=== PATIENT | male | born 1960 | race African-American/Black ===

== ENCOUNTER 2018-01-13 12:23 | Observation (INO) | payer OTHER ==
--- NOTE | 2018-01-13 12:30 | PDOC ---
History of Present Illness - General Chief Complaint: Edema Stated Complaint: HYPERLIPIDEMIA Time Seen by Provider: 01/13/18 12:30 - History of Present Illness Initial Comments: 01/13/18 13:29 The patient is a 57 year old male with a history of HTN, HLD, Gout who presents for evaluation of lower extremity swelling. The patient reports a 2 week history of worsening lower extremity swelling with pain with ambulation prompting his presentation to the ED. He states that he has been unable to ambulate due to severe pain in his ankles and feet as well. He notes that with ambulation, he experiences worsening SOB on exertion. He otherwise denies fevers, chills, chest pain, nausea, vomiting, abdominal pain, or changes with urination or bowel movements. Past History - Past Medical History Allergies/Adverse Reactions: Allergies Allergy/AdvReac Type Severity Reaction Status Date / Time No Known Allergies Allergy Verified 01/13/18 12:42 Home Medications: Ambulatory Orders Oxycodone HCl mg PO Q4H PRN 01/13/18 COPD: No HTN: Yes Hypercholesterolemia: Yes Other medical history: 5 herniated discs - Suicide/Smoking/Psychosocial Hx Smoking History: Current every day smoker Number of Cigarettes Smoked Daily: 4 Information on smoking cessation initiated: No Review of Systems - Review of Systems Comments:: 01/13/18 13:32 Constitutional: No fevers, chills, fatigue, malaise HEENT: No Rhinorrhea, nasal congestion, visual changes Cardiovascular: No chest pain, syncope, palpitations, lightheadedness Respiratory: SOB. No Cough, Hemoptysis, Gastrointestinal: No Abdominal pain, Nausea, Vomiting, Constipation, Diarrhea, Melena Genitourinary: No Dysuria, Frequency, Urgency, Hesitancy, Hematuria, Flank pain Musculoskeletal: Lower extremity swelling. No Myalgia, arthralgia Skin: No rashes, itching, bruising, pallor Neurologic: No Headache, Dizziness, Numbness, Weakness, or Tingling Psychiatric: No Hallucinations. No SI or HI *Physical Exam - Vital Signs Last Vital Signs Temp Pulse Resp BP Pulse Ox 98.6 F 92 H 18 175/112 H 100 01/13/18 12:27 01/13/18 12:27 01/13/18 12:27 01/13/18 12:27 01/13/18 12:27 - Physical Exam Comments: 01/13/18 13:33 General Appearance: Nourished. No Apparent Distress HEENT: No Pharyngeal Erythema, Tonsillar Exudate, Tonsillar Erythema Neck: No Cervical Lymphadenopathy Respiratory/Chest: Lungs Clear, Normal Breath Sounds. No Crackles, Rales, Rhonchi, Wheezing Cardiovascular: Regular Rhythm, Regular Rate. No Murmur, Gallops, Rubs Gastrointestinal/Abdominal: Normal Bowel Sounds, Soft. No Guarding, Rebound, Tenderness Musculoskeletal: No CVA Tenderness Extremity: 2+ pitting edema in the lower extremities bilaterally. Tenderness to palpation along the ankles bilaterally. Normal Capillary Refill Integumentary: Normal Color, Dry, Warm Neurologic: Fully Oriented, Alert, Normal Mood/Affect, Normal Response, Heart Score/ECG Review #1 ECG reviewed & interpreted by me at: 13:36 General ECG Interpretation: Sinus Rhythm, Normal Rate, No acute ischemic changes 01/13/18 13:36 Right bundle branch block Left Anterior Fasicular Block HR 88 QTc 484 ED Treatment Course - LABORATORY CBC & Chemistry Diagram: 01/14/18 06:10 01/13/18 12:00 Medical Decision Making - Medical Decision Making 01/13/18 13:34 The patient is a 57 year old male with a history of HTN, HLD, Gout who presents for evaluation of lower extremity swelling. Differential includes but is not limited to: CHF, Gout, DVT, Infectious, Metabolic Derangement. Given the patient's history and physical exam, we will obtain a cbc, cmp, troponin, bnp, uric acid, ekg, chest plain film to evaluate further for possible etiologies. We will continue to monitor and reassess while here in the ED. 01/13/18 15:33 CBC, cmp, troponin, bnp are unremarkable. Uric acid is elevated. Chest plain film is unremarkable. Lower extremity US is unremarkable as read by our radiologist. We treated the patient with idocin and prednisone without improvement in the patient's symptoms. The patient has continued to be unable to ambulate due to pain. It is likely the patient's symptoms are due to a severe acute gout flare. We believe the patient requires observation admission. We discussed the case with the admitting team who accepted the patient for admission. *DC/Admit/Observation/Transfer Diagnosis at time of Disposition: Unable to walk Gout attack Qualifiers: Gout site: foot Gout etiology: unspecified cause Laterality: unspecified laterality Qualified Code(s): M10.9 - Gout, unspecified - Discharge Dispostion Condition at time of disposition: Stable Decision to Admit order: Yes - Referrals - Patient Instructions - Post Discharge Activity
--- NOTE | 2018-01-13 13:01 | PDOC ---
Attending Attestation - Resident Resident Name: Carter Barraganel - ED Attending Attestation I have performed the following: I have examined & evaluated the patient, The case was reviewed & discussed with the resident, I agree w/resident's findings & plan, Exceptions are as noted - HPI HPI: 01/13/18 13:32 Mr Maurice is a 57 yo M h/o HTN, HLD, Gout Pt presents to the ER with a complaint of lower extremity pain and swelling No fevers or chills No trauma Pt does note exertional dyspnea 01/13/18 13:33 - Physicial Exam PE: 01/13/18 13:34 Pt is awake and alert Answers questions appropriately RRR CTA b/o No abd tenderness Bilateral lower extremity edema - Medical Decision Making 01/13/18 13:34 EKG: SR rate of 88 bpm, Left axis deviation, RBBB, intervals abnormal - pr: 160mg, QRS: 118ms, QTc: 484ms 01/13/18 14:41 Laboratory Tests 01/13/18 01/13/18 12:00 12:00 WBC 7.0 Hgb 12.6 Hct 37.4 Plt Count 360 BUN 18 Creatinine 1.0 Uric Acid 7.8 H Creatine Kinase 227 Troponin I < 0.02 B-Natriuretic Peptide 209.4 H Duplex negative pt has severe pain Despite medications, pt is still unable to ambulate Will place on observation Clinical impression: gout flair, initial presentation Discharge Disposition - Diagnosis Unable to walk Gout attack Qualifiers: Gout site: foot Gout etiology: unspecified cause Laterality: unspecified laterality Qualified Code(s): M10.9 - Gout, unspecified - Discharge Dispostion Disposition: HOME Condition at time of disposition: Stable Decision to Admit order: Yes - Prescriptions - Referrals - Patient Instructions - Post Discharge Activity
[2018-01-13 14:00] LABS: BASO % 0.7 % (0-2.0); EOS % 1.1 % (0-4.5); HEMATOCRIT 37.4 % (35.4-49); HEMOGLOBIN 12.6 GM/dL (11.7-16.9); LYMPH % 25.7 % (8-40); MCH 31.7 pg (25.7-33.7); MCHC 33.7 g/dl (32.0-35.9); MEAN CELL VOLUME 93.8 fl (80-96); MONO % 7.4 % (3.8-10.2); NEUT % 65.1 % (42.8-82.8); PLATELET COUNT 360 K/MM3 (134-434); RBC 3.98 M/mm3 (4.00-5.60); RDW 13.3 % (11.9-15.9)
[2018-01-13 14:27] LABS: ALBUMIN 3.6 g/dl (3.4-5.0); ALK PHOS 100 U/L (45-117); ANION GAP 6 MMOL/L (8-16); BILIRUBIN,TOTAL 0.6 mg/dL (0.2-1); BLOOD UREA NITROGEN 18 mg/dL (7-18); CALCIUM 8.5 mg/dL (8.5-10.1); CHLORIDE 105 mmol/L (98-107); CO2 27 mmol/L (21-32); GLUCOSE,RANDOM 89 mg/dL (74-106); N-TERMINAL BNP 209.4 pg/ml (5-125); POTASSIUM 5.3 mmol/L (3.5-5.1); SGOT/AST 35 U/L (15-37); SGPT/ALT 23 U/L (13-61); SODIUM 137 mmol/L (136-145); TOT PROT 7.7 g/dl (6.4-8.2); URIC ACID 7.8 mg/dL (2.6-7.2)
[2018-01-13] MEDS ORDERED: INDOMETHACIN 50 MG CAPSULE PO ONE (14:42)
[2018-01-13] MEDS ORDERED: predniSONE 20 MG TABLET (UD) PO ONE (14:44)
[2018-01-13] MEDS ORDERED: predniSONE 20 MG TABLET (UD) ONE (14:55)
[2018-01-13] MEDS ORDERED: LABETALOL HCL 5 MG/1 ML (100MG/20 ML VIAL) IVPUSH ONE (16:19)
--- NOTE | 2018-01-13 18:25 | HP ---
CHIEF COMPLAINT: PCP: HISTORY OF PRESENT ILLNESS: ER course was notable for: (1) (2) (3) Recent Travel: PAST MEDICAL HISTORY: PAST SURGICAL HISTORY: Social History: Smoking: Alcohol: Drugs: Family History: Allergies No Known Allergies Allergy (Verified 01/13/18 12:42) HOME MEDICATIONS: Home Medications Medication Instructions Recorded Oxycodone HCl mg PO Q4H PRN 01/13/18 REVIEW OF SYSTEMS CONSTITUTIONAL: Absent: fever, chills, diaphoresis, generalized weakness, malaise, loss of appetite, weight change HEENT: Absent: rhinorrhea, nasal congestion, throat pain, throat swelling, difficulty swallowing, mouth swelling, ear pain, eye pain, visual changes CARDIOVASCULAR: Absent: chest pain, syncope, palpitations, irregular heart rate, lightheadedness , peripheral edema RESPIRATORY: Absent: cough, shortness of breath, dyspnea with exertion, orthopnea, wheezing, stridor, hemoptysis GASTROINTESTINAL: Absent: abdominal pain, abdominal distension, nausea, vomiting, diarrhea, constipation, melena, hematochezia GENITOURINARY: Absent: dysuria, frequency, urgency, hesitancy, hematuria, flank pain, genital pain MUSCULOSKELETAL: Absent: myalgia, arthralgia, joint swelling, back pain, neck pain SKIN: Absent: rash, itching, pallor HEMATOLOGIC/IMMUNOLOGIC: Absent: easy bleeding, easy bruising, lymphadenopathy, frequent infections ENDOCRINE: Absent: unexplained weight gain, unexplained weight loss, heat intolerance, cold intolerance NEUROLOGIC: Absent: headache, focal weakness or paresthesias, dizziness, unsteady gait, seizure, mental status changes, bladder or bowel incontinence PSYCHIATRIC: Absent: anxiety, depression, suicidal or homicidal ideation, hallucinations. PHYSICAL EXAMINATION Vital Signs - 24 hr 01/13/18 01/13/18 01/13/18 12:27 16:16 16:17 Temperature 98.6 F Pulse Rate 92 H 79 Pulse Rate [ 79 Right] Respiratory 18 18 Rate Blood Pressure 175/112 H Blood Pressure 171/112 H [Left Arm] O2 Sat by Pulse 100 96 96 Oximetry (%) 01/13/18 01/13/18 18:23 18:24 Temperature 98.7 F Pulse Rate Pulse Rate [ 73 Right] Respiratory 18 Rate Blood Pressure Blood Pressure 181/94 H [Left Arm] O2 Sat by Pulse 96 96 Oximetry (%) GENERAL: Awake, alert, and fully oriented, in no acute distress. HEAD: Normal with no signs of trauma. EYES: Pupils equal, round and reactive to light, extraocular movements intact, sclera anicteric, conjunctiva clear. No lid lag. EARS, NOSE, THROAT: Ears normal, nares patent, oropharynx clear without exudates. Moist mucous membranes. NECK: Normal range of motion, supple without lymphadenopathy, JVD, or masses. LUNGS: Breath sounds equal, clear to auscultation bilaterally. No wheezes, and no crackles. No accessory muscle use. HEART: Regular rate and rhythm, normal S1 and S2 without murmur, rub or gallop. ABDOMEN: Soft, nontender, not distended, normoactive bowel sounds, no guarding, no rebound, no masses. No hepatomegaly or splenomegaly. MUSCULOSKELETAL: Normal range of motion at all joints. No bony deformities or tenderness. No CVA tenderness. UPPER EXTREMITIES: 2+ pulses, warm, well-perfused. No cyanosis. No clubbing. No peripheral edema. LOWER EXTREMITIES: 2+ pulses, warm, well-perfused. No calf tenderness. No peripheral edema. NEUROLOGICAL: Cranial nerves II-XII intact. Normal speech. Normal gait. PSYCHIATRIC: Cooperative. Good eye contact. Appropriate mood and affect. SKIN: Warm, dry, normal turgor, no rashes or lesions noted, normal capillary refill. Laboratory Results - last 24 hr 01/13/18 01/13/18 12:00 12:00 WBC 7.0 RBC 3.98 L Hgb 12.6 Hct 37.4 MCV 93.8 MCH 31.7 MCHC 33.7 RDW 13.3 Plt Count 360 MPV 8.0 Absolute Neuts (auto) 4.6 Neutrophils % 65.1 Lymphocytes % 25.7 Monocytes % 7.4 Eosinophils % 1.1 Basophils % 0.7 Nucleated RBC % 0 Sodium 137 Potassium 5.3 H Chloride 105 Carbon Dioxide 27 Anion Gap 6 L BUN 18 Creatinine 1.0 Creat Clearance w eGFR > 60 Random Glucose 89 Uric Acid 7.8 H Calcium 8.5 Total Bilirubin 0.6 AST 35 ALT 23 Alkaline Phosphatase 100 Creatine Kinase 227 Creatine Kinase Index 0.9 CK-MB (CK-2) 2.2 Troponin I < 0.02 B-Natriuretic Peptide 209.4 H Total Protein 7.7 Albumin 3.6 ASSESSMENT/PLAN: Right ankle pain likely secondary to Gout flare --colchine acute dosing --Lyme Hypertension -start labetolol 100mg BID, titrate as needed --target SBP >160
[2018-01-13] MEDS ORDERED: COLCHICINE 0.6 MG TABLET (FP) PO STA (19:10)
[2018-01-13] MEDS ORDERED: COLCHICINE 0.6 MG TABLET (FP) PO ONE (22:00)
[2018-01-13] MEDS: LABETALOL HCL 100 MG TABLET (FP) PO SCH (22:23)
[2018-01-13 23:45] VITALS: BMI 41.1
[2018-01-14] MEDS: HEPARIN NA (PORCINE) 5,000 UNITS/ML 1ML VIAL SQ SCH ×3 (06:05→21:48)
[2018-01-14 07:20] LABS: BASO % 0.3 % (0-2.0); HEMATOCRIT 36.3 % (35.4-49); HEMOGLOBIN 12.1 GM/dL (11.7-16.9); LYMPH % 12.9 % (8-40); MCH 31.2 pg (25.7-33.7); MCHC 33.4 g/dl (32.0-35.9); MEAN CELL VOLUME 93.5 fl (80-96); MEAN PLT VOLUME 7.7 fl (7.5-11.1); MONO % 5.7 % (3.8-10.2); NEUT % 81.1 % (42.8-82.8); PLATELET COUNT 325 K/MM3 (134-434); RBC 3.89 M/mm3 (4.00-5.60); RDW 12.7 % (11.9-15.9); WHITE BLOOD COUNT 9.2 K/mm3 (4.0-10.0)
[2018-01-14 08:33] LABS: ALBUMIN 3.4 g/dl (3.4-5.0); ALK PHOS 93 U/L (45-117); ANION GAP 7 MMOL/L (8-16); BILIRUBIN,TOTAL 0.4 mg/dL (0.2-1); BLOOD UREA NITROGEN 16 mg/dL (7-18); CALCIUM 8.7 mg/dL (8.5-10.1); CHLORIDE 102 mmol/L (98-107); CO2 29 mmol/L (21-32); CREATININE 0.9 mg/dL (0.55-1.3); GLUCOSE,RANDOM 135 mg/dL (74-106); MAGNESIUM 2.4 mg/dL (1.8-2.4); POTASSIUM 4.9 mmol/L (3.5-5.1); SGOT/AST 15 U/L (15-37); SGPT/ALT 21 U/L (13-61); SODIUM 138 mmol/L (136-145); TOT PROT 7.3 g/dl (6.4-8.2)
[2018-01-14] MEDS: LABETALOL HCL 100 MG TABLET (FP) PO SCH ×4 (10:45→21:48)
--- NOTE | 2018-01-14 10:52 | EKG ---
Test Reason : Blood Pressure : / mmHG Vent. Rate : 088 BPM Atrial Rate : 088 BPM P-R Int : 160 ms QRS Dur : 118 ms QT Int : 400 ms P-R-T Axes : 043 -58 035 degrees QTc Int : 484 ms SINUS RHYTHM WITH PREMATURE SUPRAVENTRICULAR COMPLEXES RIGHT BUNDLE BRANCH BLOCK LEFT ANTERIOR FASCICULAR BLOCK BIFASCICULAR BLOCK ABNORMAL ECG WHEN COMPARED WITH ECG OF 25-OCT-2009 22:44, PREMATURE SUPRAVENTRICULAR COMPLEXES ARE NOW PRESENT (RBBB AND LEFT ANTERIOR FASCICULAR BLOCK) IS NOW PRESENT Confirmed by HUGH ROSARIO MD ([id number]) on 01/14/2018 10:52:14 AM Referred By: Confirmed By:HUGH ROSARIO MD
[2018-01-14] MEDS: LISINOPRIL 5 MG TABLET (FP) PO SCH (14:45)
--- NOTE | 2018-01-14 21:13 | PN ---
Physical Exam: SUBJECTIVE: Patient seen and examined OBJECTIVE: Vital Signs Period Temp Pulse Resp BP Sys/Chavez Pulse Ox Last 24 Hr 97.9 F-98.4 F 71-91 18-20 114-161/63-100 96-97 GENERAL: The patient is awake, alert, and fully oriented, in no acute distress. HEAD: Normal with no signs of trauma. EYES: PERRL, extraocular movements intact, sclera anicteric, conjunctiva clear. No ptosis. ENT: Ears normal, nares patent, oropharynx clear without exudates, moist mucous membranes. NECK: Trachea midline, full range of motion, supple. LUNGS: Breath sounds equal, clear to auscultation bilaterally, no wheezes, no crackles, no accessory muscle use. HEART: Regular rate and rhythm, S1, S2 without murmur, rub or gallop. ABDOMEN: Soft, nontender, nondistended, normoactive bowel sounds, no guarding, no rebound, no hepatosplenomegaly, no masses. EXTREMITIES: 2+ pulses, warm, well-perfused, no edema. NEUROLOGICAL: Cranial nerves II through XII grossly intact. Normal speech, gait not observed. PSYCH: Normal mood, normal affect. SKIN: Warm, dry, normal turgor, no rashes or lesions noted Laboratory Results - last 24 hr 01/14/18 01/14/18 01/14/18 06:10 06:10 06:10 WBC 9.2 RBC 3.89 L Hgb 12.1 Hct 36.3 MCV 93.5 MCH 31.2 MCHC 33.4 RDW 12.7 Plt Count 325 MPV 7.7 Absolute Neuts (auto) 7.5 Neutrophils % 81.1 D Lymphocytes % 12.9 D Monocytes % 5.7 Eosinophils % 0.0 D Basophils % 0.3 Nucleated RBC % 0 Sodium 138 Potassium 4.9 Chloride 102 Carbon Dioxide 29 Anion Gap 7 L BUN 16 Creatinine 0.9 Creat Clearance w eGFR > 60 Random Glucose 135 H Hemoglobin A1c % 5.5 Calcium 8.7 Magnesium 2.4 Total Bilirubin 0.4 AST 15 ALT 21 Alkaline Phosphatase 93 Total Protein 7.3 Albumin 3.4 TSH 0.27 L Active Medications Generic Name Dose Route Start Last Admin Trade Name Freq PRN Reason Stop Dose Admin Heparin Sodium (Porcine) 5,000 unit 01/14/18 06:00 01/14/18 14:46 Heparin - SQ 5,000 unit TID GLORIA Administration Labetalol HCl 100 mg 01/14/18 10:45 01/14/18 14:46 Normodyne - PO 100 mg TID GLORIA Administration Lisinopril 5 mg 01/14/18 10:45 01/14/18 14:45 Prinivil PO 5 mg DAILY GLORIA Administration ASSESSMENT/PLAN:
[2018-01-15] MEDS: HEPARIN NA (PORCINE) 5,000 UNITS/ML 1ML VIAL SQ SCH ×2 (05:54→14:46)
[2018-01-15] MEDS: LABETALOL HCL 100 MG TABLET (FP) PO SCH (05:54)
[2018-01-15] MEDS: LISINOPRIL 5 MG TABLET (FP) PO SCH (09:33)
[2018-01-15] MEDS ORDERED: LABETALOL HCL 100 MG TABLET (FP) PO SCH (10:00)
--- NOTE | 2018-01-15 10:30 | EKG ---
Test Reason : Blood Pressure : / mmHG Vent. Rate : 075 BPM Atrial Rate : 075 BPM P-R Int : 162 ms QRS Dur : 122 ms QT Int : 396 ms P-R-T Axes : 067 -40 069 degrees QTc Int : 442 ms SINUS RHYTHM WITH PREMATURE ATRIAL COMPLEXES LEFT AXIS DEVIATION RIGHT BUNDLE BRANCH BLOCK ABNORMAL ECG WHEN COMPARED WITH ECG OF 13-JAN-2018 13:09, T WAVE INVERSION NOW EVIDENT IN LATERAL LEADS Confirmed by SHREYAS CAMPO, ASIA ([id number]) on 01/15/2018 10:30:09 AM Referred By: Theresa DANIEL Confirmed By:ASIA PRITCHETT MD
--- NOTE | 2018-01-15 12:24 | ECHO ---
Name: MERT ROBISON Exam:Adult Echocardiogram Study Date: 01/15/2018 10:58 AM Age: 57 yrs Reason For Study: HYPERTENSIVE Height: 71 in Weight: 275 lb BSA: 2.4 m2 MMode/2D Measurements & Calculations IVSd: 1.3 cm Ao root diam: 2.9 cm LVIDd: 6.0 cm LA dimension: 3.0 cm LVIDs: 4.5 cm LVPWd: 1.3 cm EDV(Teich): 178.4 ml LVOT diam: 2.1 cm ESV(Teich): 92.0 ml TAPSE: 3.2 cm RV S Yousif: 18.1 cm/sec Doppler Measurements & Calculations MV E max yousif: 66.5 cm/sec Med Peak E' Yousif: 7.9 cm/sec MV A max yousif: 56.8 cm/sec Med E/e': 8.4 MV E/A: 1.2 Lat Peak E' Yousif: 8.1 cm/sec MV dec time: 0.19 sec Lat E/e': 8.3 Procedure A complete two-dimensional transthoracic echocardiogram was performed (2D, M-mode, Doppler and color flow Doppler). Left Ventricle The left ventricle is mildly dilated. Left ventricular systolic function is mildly reduced. Ejection Fraction = 45-50%. There is mild global hypokinesis of the left ventricle. Right Ventricle The right ventricle is normal size. The right ventricular systolic function is normal. RV systolic TD I is 18 cm/s. Atria The left atrial size is normal. Right atrial size is normal. Mitral Valve The mitral valve is normal in structure and function. There is mild mitral regurgitation. Tricuspid Valve The tricuspid valve is normal in structure and function. There is mild tricuspid regurgitation. Aortic Valve The aortic valve is normal in structure and function. Mild aortic regurgitation. Pulmonic Valve The pulmonic valve is not well visualized. Trace to mild pulmonic valvular regurgitation. Great Vessels The aortic root is normal size. Pericardium/Pleura There is no pericardial effusion. Interpretation Summary The left ventricle is mildly dilated. Left ventricular systolic function is mildly reduced. There is mild global hypokinesis of the left ventricle. Ejection Fraction = 45-50%. The right ventricular systolic function is normal. The left atrial size is normal. Right atrial size is normal. There is mild mitral regurgitation. There is mild tricuspid regurgitation. Mild aortic regurgitation. Trace to mild pulmonic valvular regurgitation. There is no pericardial effusion. Previous study is not available for comparison Deshawn Richardson MD 01/15/2018 12:23 PM
[2018-01-15 15:25] VITALS: BP 113/72; PULSE 92; TEMP 98.5
--- NOTE | 2018-01-15 15:57 | CON.CARD ---
Consult Consult Specialty:: Cardiology Referred by:: Ms. Ford NP Reason for Consultation:: Systolic CHF with mild LV systolic dysfunction. - History of Present Illness Chief Complaint: Leg swelling and COBOS. History of Present Illness: 57 year old obese man with a PMHx of HTN, HLD, gout admitted 01/13/2018 with lower extremity swelling and pain. The patient reports a 2 week history of worsening lower extremity swelling with pain. His exercise tolerance is severely limited due to right ankle pain and COBOS. He denies chest pain, SOB at rest, palpitation, dizziness, syncope or near syncope. GA ruled out. BNP is borderline. Echocardiogram 01/15/2018 showed mild LV dilatation with mild global hypokinesis. LVEF = 45-50%. Normal RV. Normal LA and RA in size. Mild AI/MR/TR. ECG revealed sinus rhythm with LAD, RBBB and lateral T inversion. - Alcohol/Substance Use Hx Alcohol Use: No - Smoking History Smoking history: Current every day smoker Aproximately how many cigarettes per day: 4 Home Medications - Allergies Allergies/Adverse Reactions: Allergies Allergy/AdvReac Type Severity Reaction Status Date / Time No Known Allergies Allergy Verified 01/13/18 12:42 - Home Medications Home Medications: Ambulatory Orders Oxycodone HCl mg PO Q4H PRN 01/13/18 Review of Systems - Review of Systems Cardiovascular: reports: Shortness of Breath Respiratory: reports: Snoring, SOB, SOB on Exertion Genitourinary: reports: No Symptoms Breasts: reports: No Symptoms Reported Musculoskeletal: reports: Joint Pain, Joint Swelling Integumentary: reports: No Symptoms Neurological: reports: No Symptoms Endocrine: reports: No Symptoms Hematology/Lymphatic: reports: No Symptoms Vital Signs: Vital Signs Temperature 98.5 F 01/15/18 15:23 Pulse Rate 92 H 01/15/18 15:23 Respiratory Rate 20 01/15/18 15:23 Blood Pressure 113/72 01/15/18 15:23 O2 Sat by Pulse Oximetry (%) 96 01/15/18 03:00 General: Well developed. Obese. No acute distress. Head: Normocephalic. Atraumatic, Eyes: PERRLA, EOMI. Sclerae anicteric. Conjunctivae clear. Neck: Supple. No JVD. No bruits. Heart: Normal S1, S2: Regular rhythm and rate. No murmur. No gallop or rub. Lungs: Symmetrical air entry. Clear to auscultation. No crackles. No wheezing or rhonchi. Abdomen: Soft. Bowel sound positive. Non tender. No masses. Extremities: Trace edema. No clubbing or cyanosis. PD 2+, equal bilaterally. - Other Data Labs, Other Data: CBC, BMP 01/14/18 06:10 01/14/18 06:10 Assessment/Plan 57 year old obese man with a PMHx of HTN, HLD, gout admitted 01/13/2018 with lower extremity swelling, pain and COBOS. GA ruled out. BNP is borderline. Echocardiogram 01/15/2018 showed mild LV dilatation with mild global hypokinesis. LVEF = 45-50%. Normal RV. Normal LA and RA in size. Mild AI/MR/TR. ECG revealed sinus rhythm with LAD, RBBB and lateral T inversion. Mild LV systolic dysfunction: unclear etiology. 1) Myocardial ischemia should be ruled out. 2) Obstructive sleep apnea should be ruled out. 3) Agree with Lisinopril 4) May change Labetalol to Metoprolol succinate 50 mg daily. 5) May use Lasix as needed. 6) The above recommendations can be done as out-pt. 7) Out-pt cardiac follow up with Dr. Rea. Please call us for reconsult as needed.
[2018-01-15] MEDS ORDERED: ACETAMINOPHEN 325 MG TABLET (FP) PO PRN (17:40)
[2018-01-15] MEDS ORDERED: ACETAMINOPHEN 325 MG TABLET (FP) ONE (17:49)
== END 2018-01-15 18:00 | disposition home or self-care (01) ==
LOC: JER 12:23 → JERBED 16:47 → J7W 19:53
PROVIDERS: ADMIT Hospitalist; ATTEND Nurse Practitioner Acute Care
PROC: 3E033GC Introduction of Other Therapeutic Substance into Peripheral Vein, Percutaneous Approach (ICD-10-PCS; principal; 2018-01-13)
DX: M10.9 Gout, unspecified (principal); R26.2 Difficulty in walking, not elsewhere classified; I10 Essential (primary) hypertension; E78.5 Hyperlipidemia, unspecified; F17.210 Nicotine dependence, cigarettes, uncomplicated; I45.2 Bifascicular block; E66.9 Obesity, unspecified; Z68.41 Body mass index [BMI] 40.0-44.9, adult
CPT/HCPCS: 36415; 71045-TC-FY; 80053; 82550; 82553; 83036; 83735; 83880; 84443; 84484; 84550; 85025; 86618; 93005; 93010; 93306-TC; 93970-TC; 96374; 99284-25; G0378; J1644

== ENCOUNTER 2018-06-25 20:08 | Emergency (ER) | payer OTHER ==
[2018-06-25 20:14] VITALS: BMI 39.4
--- NOTE | 2018-06-25 21:24 | PDOC ---
Attending Attestation - Resident Resident Name: Antonio Young - HPI HPI: 06/25/18 21:33 this 58 male has a cold and c/o coughing,chills,chest wall pain when he coughs -nonpruductive cough, no vomiting, -htn,hyperlipedemia,cough - Physicial Exam PE: 06/25/18 21:43 58-year-old male who has had a dry hacking cough for several days. There is a sick family contacts. His young nephew just finished having an upper respiratory infection. 06/25/18 21:45 Head normocephalic/atraumatic. Positive rhinorrhea. Neck supple, no JVD. Lungs clear to auscultation bilaterally CVS Tachycardia Abdomen protuberant with large reducible umbilical hernia. Lower extremities no pitting edema, no erythema. Skin warm and dry. Neuro alert and oriented 3, ambulatory, no gross focal neural deficits - Medical Decision Making 06/26/18 00:20 pt denies substernal chest pain he has a hacking dry cough,he is not hypoxic and he is not in any respiratory distress EKG as sinus tachycardia at 103 with some PVCs, chronic right bundle branch block that was seen on prior EKGs Negative troponin. Chest x-ray no infiltrates, no pneumothorax , no effusions,no chf CBC is unremarkable. Chemistries show slight bump in BUN and creatinine imp cough plan d/c home
[2018-06-25] MEDS ORDERED: SODIUM CHLORIDE 0.9% 500 ML INFUS.BAG IV ONE (21:26)
--- NOTE | 2018-06-25 21:47 | PDOC ---
History of Present Illness - General Chief Complaint: Chest Pain Stated Complaint: CHEST PAIN Time Seen by Provider: 06/25/18 20:37 History Source: Patient, Family (Niece at bedside.), Old Records Exam Limitations: No Limitations - History of Present Illness Initial Comments: HPI: 58 y/o male presenting to [facility] ER complaining of coughing x2 days. States the cough is productive of a small amount of phlegm without green or red colored sputum. Endorses diffuse chest pain only present when coughing, diaphoresis, and diffuse frontal headache. Denies fevers or chills. No chest pain at rest. No shortness of breath, orthopnea, paroxysmal nocturnal dyspnea, or lower extremity swelling. Nephew had URI a few days ago. Symptoms started after playing in the park yesterday with nephew. PCP: None Social Hx: - Tobacco: Active smoker Medical Hx: - HTN - HLD - Gout - Multiple herniated discs - Midline abdominal hernia - Morbid obesity - H/o of traumatic injury s/p tongue repair Past History - Past Medical History Allergies/Adverse Reactions: Allergies Allergy/AdvReac Type Severity Reaction Status Date / Time No Known Allergies Allergy Verified 06/25/18 20:14 Home Medications: Ambulatory Orders Lisinopril [Prinivil] 5 mg PO DAILY #30 tablet 01/15/18 Metoprolol Succinate [Toprol Xl] 50 mg PO DAILY #30 tab.er.24h 01/15/18 Guaifenesin/Dextromethorphan [Robitussin Yjnpi-Eiwtn-Lfck Dm] 1 each PO Q6H PRN #24 capsule 06/25/18 COPD: No HTN: Yes Hypercholesterolemia: Yes - Suicide/Smoking/Psychosocial Hx Smoking History: Current some day smoker Have you smoked in the past 12 months: Yes Number of Cigarettes Smoked Daily: 2 Information on smoking cessation initiated: No Hx Alcohol Use: Yes Drug/Substance Use Hx: Yes Hx Substance Use Treatment: No Review of Systems - Review of Systems Able to Perform ROS?: Yes Comments:: In addition to that documented in the HPI above, the additional ROS was obtained : Constitutional: Endorses chills and diaphoresis. Denies fevers Head: Denies vision changes ENMT: Denies sore throat CV: Denies chest pain Resp: Denies SOB GI: Denies vomiting or diarrhea : Denies painful urination MSK: Denies recent trauma Skin: Denies new rashes Neuro: Denies new numbness or tingling or weakness Endocrine: Denies polyuria Heme: Denies bleeding or bruising *Physical Exam - Vital Signs Last Vital Signs Temp Pulse Resp BP Pulse Ox 98.2 F 116 H 24 H 176/106 H 96 06/25/18 20:11 06/25/18 20:11 06/25/18 20:11 06/25/18 20:11 06/25/18 20:11 - Physical Exam Comments: Constitutional: Well-developed, well-nourished, non-toxic adult male in no acute distress or obvious discomfort. Found sitting upright on hospital bed. Alert and oriented x4. Answered all questions appropriately and completely. Speech was non-labored, non-pressured. Head: Normocephalic. No obvious external signs of trauma. Eyes: Pupils 3mm and PERRL bilaterally. Sclerae white. Conjunctiva moist and not injected. Ears: Hearing grossly intact. Nose: Mild rhinorrhea. Throat: Macroglossia with suture line in middle. Oral cavity and pharynx normal. No inflammation, swelling, exudate, or lesions. Neck: Supple, trachea is midline. Cardiovascular / Chest: Regular rate and regular rhythm. No murmur, rubs, clicks, or gallops. Peripheral pulses: radial pulses full. Respiratory: Periodic dry sounding cough during interview. Breathing unlabored. Equal chest rise and fall. Clear to auscultation bilaterally; technically limited secondary to body habitus. No stridor, no wheezing, no rhonchi. Gastrointestinal: abdomen is soft, non-tender, non-distended. Large reducible midline hernia. Neuro: Alert and oriented. Moving all four extremities spontaneously. Skin: Warm, dry, and intact. No bruising, rashes, or other lesions. : No R or L CVA tenderness. Psych: Affect: appropriate. Mood: normal. ED Treatment Course - LABORATORY CBC & Chemistry Diagram: 06/25/18 21:38 06/25/18 21:40 - ADDITIONAL ORDERS Additional order review: 06/25/18 06/25/18 21:40 21:38 Sodium 137 Potassium 4.7 Chloride 101 Carbon Dioxide 28 Anion Gap 8 BUN 22 H Creatinine 1.4 H Creat Clearance w eGFR 52.24 Random Glucose 98 Calcium 8.7 Total Bilirubin 0.5 AST 41 H ALT 38 Alkaline Phosphatase 89 Troponin I < 0.02 Total Protein 7.4 Albumin 4.2 06/25/18 21:38 RBC 4.15 MCV 96.6 H MCHC 34.6 RDW 12.8 MPV 7.8 Neutrophils % 73.6 Lymphocytes % 9.8 D Monocytes % 15.6 H D Eosinophils % 0.4 D Basophils % 0.6 - RADIOLOGY Radiology Studies Ordered: Category Date Time Status CHEST PA & LAT [RAD] Stat Radiology 06/25/18 21:10 Ordered - Medications Given in the ED: ED Medications Discontinued Medications Generic Name Dose Route Start Last Admin Trade Name Freq PRN Reason Stop Dose Admin Acetaminophen/Codeine Phosphate 5 ml 06/25/18 23:16 06/25/18 23:50 Tylenol W/Codeine Oral Solution - PO 06/25/18 23:17 5 ml ONCE ONE Administration Sodium Chloride 500 ml 06/25/18 21:26 06/25/18 21:50 Normal Saline - IV 06/25/18 21:27 500 ml ONCE ONE Administration Medical Decision Making - Medical Decision Making *Reviewed vital signs, nursing notes, and prior visit documentation (if available). 58 y/o male presenting with nonproductive cough x2 days. No reported systemic symptoms. Afebrile. Vitals remarkable for hypertension and mild tachycardia. Suspect the hypertension is secondary to diagnosis of HTN without medication adherence. Tachycardia likely secondary to exertional fatigue secondary to body habitus. Will trend while in the department. Suspect URI. Low suspicion for ACS , pneumonia, CHF, COPD/asthma. EKG revealed sinus tachycardia with a ventricular rate of 103 bpm. Right axis deviation and RBBB. No significant interval changes from previous EKG dated 14 Jan 2018. Troponin negative. Low suspicion for ACS. CXR unremarkable for acute cardiopulmonary process per ED wet read. Compared to previous study dated Jan 2018. Radiology report pending. Low suspicion for pneumonia. CBC unremarkable for leukocytosis. CMP unremarkable for electrolyte derangement. Cr and BUN slightly elevated. Suspect secondary to chronic hypertension. Will refer pt to [facility] for primary care. Suspect acute complaint is viral URI versus viral bronchitis. Ordered Tylenol with Codeine in the department for symptom relief. Pt states his niece will drive him home. Will prescribe Robitussin DM for outpatient therapy. Noted single SPO2 measurement of 88 percent. Suspect this may have been an inaccurate reading. Pt was placed on continuous capnography and monitored for an additional 30 min period. No further desaturation to below 90% was recorded. Suspect pts large body habitus is contributory. *DC/Admit/Observation/Transfer Diagnosis at time of Disposition: Cough in adult Hypertension Qualifiers: Hypertension type: unspecified Qualified Code(s): I10 - Essential (primary) hypertension - Discharge Dispostion Disposition: HOME Condition at time of disposition: Good Decision to Admit order: No - Prescriptions Prescriptions: Guaifenesin/Dextromethorphan [Robitussin Fjyzw-Pfotl-Taxs Dm] 1 each PO Q6H PRN #24 capsule PRN Reason: Cough, Congestion - Referrals Referrals: [facility] [place] Group] - Patient Instructions Printed Discharge Instructions: DI for Cough -- Adult Additional Instructions: You were seen today for coughing. Your chest xray did not show signs of a pneumonia. Your blood work was normal aside from a slight elevation in your kidney numbers. This is likely because of your blood pressure. You need to start seeing a doctor and restart taking your high blood pressure medication! I have sent a prescription for Robitussin DM to your pharmacy. Take as directed on the package insert. Do not exceed the recommended dosage. I have entered a referral for you to see a primary care physician at [facility] primary [facility]. You will need to call to make an appointment in the next 2-4 days. The telephone number is [phone]. The address is: [facility] [place] [address], [place] [address] Go to the nearest emergency department if your condition worsens or you feel like you need additional emergency evaluation. Print Language: CANADIAN - Post Discharge Activity
[2018-06-25 21:56] LABS: BASO % 0.6 % (0-2.0); EOS % 0.4 % (0-4.5); HEMATOCRIT 40.1 % (35.4-49); HEMOGLOBIN 13.9 GM/dL (11.7-16.9); LYMPH % 9.8 % (8-40); MCH 33.4 pg (25.7-33.7); MCHC 34.6 g/dl (32.0-35.9); MEAN CELL VOLUME 96.6 fl (80-96); MEAN PLT VOLUME 7.8 fl (7.5-11.1); MONO % 15.6 % (3.8-10.2); NEUT % 73.6 % (42.8-82.8); PLATELET COUNT 208 K/MM3 (134-434); RBC 4.15 M/mm3 (4.00-5.60); RDW 12.8 % (11.9-15.9); WHITE BLOOD COUNT 5.2 K/mm3 (4.0-10.0)
[2018-06-25 22:38] LABS: ALBUMIN 4.2 g/dl (3.4-5.0); ALK PHOS 89 U/L (45-117); ANION GAP 8 MMOL/L (8-16); BILIRUBIN,TOTAL 0.5 mg/dL (0.2-1); BLOOD UREA NITROGEN 22 mg/dL (7-18); CALCIUM 8.7 mg/dL (8.5-10.1); CHLORIDE 101 mmol/L (98-107); CO2 28 mmol/L (21-32); CREATININE 1.4 mg/dL (0.55-1.3); GLUCOSE,RANDOM 98 mg/dL (74-106); POTASSIUM 4.7 mmol/L (3.5-5.1); SGOT/AST 41 U/L (15-37); SGPT/ALT 38 U/L (13-61); SODIUM 137 mmol/L (136-145); TOT PROT 7.4 g/dl (6.4-8.2)
[2018-06-25] MEDS ORDERED: ACETAMINOPHEN W/ CODEINE LIQ 5 ML CUP PO ONE (23:16)
[2018-06-25 23:28] VITALS: TEMP 98.1
[2018-06-25] MEDS ORDERED: ACETAMINOPHEN W/ CODEINE LIQ 5 ML CUP ONE (23:47)
[2018-06-26 00:37] VITALS: BP 155/53; PULSE 92
--- NOTE | 2018-06-26 09:19 | EKG ---
Test Reason : Blood Pressure : / mmHG Vent. Rate : 103 BPM Atrial Rate : 103 BPM P-R Int : 148 ms QRS Dur : 140 ms QT Int : 376 ms P-R-T Axes : 075 -88 048 degrees QTc Int : 492 ms SINUS TACHYCARDIA WITH PREMATURE SUPRAVENTRICULAR COMPLEXES LEFT AXIS DEVIATION RIGHT BUNDLE BRANCH BLOCK ABNORMAL ECG WHEN COMPARED WITH ECG OF 14-JAN-2018 10:03, T WAVE VARIATION Confirmed by ASIA PRITCHETT MD ([id number]) on 06/26/2018 9:19:33 AM Referred By: Confirmed By:ASIA PRITCHETT MD
== END 2018-06-26 00:37 | disposition home or self-care (01) ==
LOC: JER 20:08
DX: R05 Cough (principal); I10 Essential (primary) hypertension; E78.5 Hyperlipidemia, unspecified
CPT/HCPCS: 36415; 71046-TC-FY; 80053; 84484; 85025; 93005; 93010; 99283-25

== ENCOUNTER 2019-04-07 15:06 | Inpatient (IN) | payer OTHER ==
--- NOTE | 2019-04-07 15:18 | PDOC ---
History of Present Illness - General Chief Complaint: Pain Stated Complaint: HERNIA Time Seen by Provider: 04/07/19 15:18 History Source: Patient Exam Limitations: No Limitations - History of Present Illness Initial Comments: 04/07/19 15:47 59yM w PMHx morbid obesity presenting w hernia pain. Has chronic small non painful hernia superior-L lateral to umbilicus for the past 9mo. 2d ago hernia became hard, painful, grown to [id number]. Took ibuprofen, tylenol, percocet for pain, last took anything yesterday. Denies past ABD surgery. Last BM 2d ago which is normal, last ate/drank 8am this morning. has another non painful hernia inferior-R lateral to umbilicus for past 9mo measuring 7x8cm, never medically evaluated. Denies fever, nausea/vomiting, chest pain, SOB, loss of appetite, urinary changes. Past History - Past Medical History Allergies/Adverse Reactions: Allergies Allergy/AdvReac Type Severity Reaction Status Date / Time No Known Allergies Allergy Verified 04/07/19 15:41 COPD: No HTN: Yes Hypercholesterolemia: Yes - Psycho Social/Smoking Cessation Hx Smoking History: Current some day smoker Have you smoked in the past 12 months: Yes Number of Cigarettes Smoked Daily: 2 Hx Alcohol Use: Yes Drug/Substance Use Hx: Yes Hx Substance Use Treatment: No Review of Systems - Review of Systems Constitutional: No: Chills, Fever HEENTM: No: Eye Pain, Nose Pain, Nose Congestion, Throat Pain, Mouth Pain Respiratory: No: Cough, Shortness of Breath Cardiac (ROS): No: Chest Pain, Palpitations, Syncope ABD/GI: Yes: Constipated. No: Abdominal Distended, Diarrhea, Nausea, Vomiting : No: Burning, Dysuria, Hematuria Musculoskeletal: No: Back Pain, Joint Pain Integumentary: No: Bruising, Flushing, Lesions Neurological: No: Headache, Seizure, Tingling Psychiatric: No: Anxiety, Depression, Stressors Endocrine: No: Excessive Sweating, Flushing, Intolerance to Cold, Intolerance to Heat Hematologic/Lymphatic: No: Anemia, Blood Clots *Physical Exam - Physical Exam General Appearance: Yes: Nourished, Appropriately Dressed, Mild Distress, Obese HEENT: positive: EOMI, KALYANI, Normal Voice, Hearing Grossly Normal. negative: Scleral Icterus (R), Scleral Icterus (L), Nasal Congestion, Rhinorrhea Respiratory/Chest: positive: Lungs Clear, Normal Breath Sounds. negative: Chest Tender, Respiratory Distress, Crackles, Rales, Rhonchi, Stridor, Wheezing Cardiovascular: positive: Regular Rhythm, Regular Rate, S1, S2. negative: Edema , Murmur Gastrointestinal/Abdominal: positive: Normal Bowel Sounds, Tender (10x10 non reproduceable mass superior/L lateral to umbilicus. Not erythematous. Reduceable 7x7cm hernia inferior/R lateral ), Soft, Distended (mild). negative : Organomegaly, Guarding, Rebound Musculoskeletal: negative: CVA Tenderness (R), CVA Tenderness (L) Integumentary: positive: Normal Color, Other (no open wounds ABD). negative: Rash Neurologic: positive: Fully Oriented, Alert, Normal Mood/Affect, Normal Response , Respond to painful stimul, Responsive. negative: Numbness, Sensory Deficit, Confused, Disoriented ED Treatment Course - LABORATORY CBC & Chemistry Diagram: 04/07/19 15:45 04/07/19 15:45 Medical Decision Making - Medical Decision Making 04/07/19 15:54 CT A/P There are 2 ventral hernias. the proximal hernia which is located 12-13 cm below the xiphoid process demonstrates a ventral defect in the median raphe of the rectus abdominal muscles that measures 1.9 cm in craniocaudal dimension and 2.4 cm in transverse dimension. The hernia sac measures 10 cm in diameter and contains omental fat and fluid. Attenuation of the fat is noted particularly as it enters the ventral defect from the abdomen. The second defect is below the first and again midline centimeter the median wrap the rectus abdominal muscles by 5.0 cm caudally. The defect measures 3.4 cm in craniocaudal dimension and up to 4.6 cm in transverse dimension and is periumbilical. Again omental fat is included within the hernia sac with the hernia sac measuring up to 12.8 cm in diameter. The fat within the hernia sac shows no increased attenuation or fluid accumulation. No ischemic change as it enters the hernia. No bowel contents. CBC CMP lactate coags T&S normal EKG NSR w PAC, RBBB, HR 77, QTc 477, no ST changes --- 59yM w PMHx morbid obesity presenting w 2d incarcerated hernia seen on CT ( 1.9x2.4cm ventral defect with 10cm hernia sac containing omental fat and fluid with fat attenuation). Low concern for strangulated hernia (no skin changes, none seen on CT) vs abscess (no fluctuating mass) vs cellulitis (no evidence of skin infection) vs SBO (ABD not diffusely tender/swollen) Given tylenol, 6 morphine, 1L NS, ice bag on hernia. Placed pt in trendelenberg. Consulted Dr Barrientos surgery - will evaluate pt for surgery tomorrow. Ordered D5 maintenance fluids, ancef, NPO at midnight Admitted m/s Dr Deejsus for incarcerated hernia requiring surgery Discharge - Discharge Information Problems reviewed: Yes Clinical Impression/Diagnosis: Incarcerated hernia, Morbid obesity with BMI of 40.0-44.9, adult Condition: Improved - Follow up/Referral - Patient Discharge Instructions - Post Discharge Activity
[2019-04-07] MEDS ORDERED: ACETAMINOPHEN 500 MG TABLET (FP) PO ONE (15:30)
[2019-04-07] MEDS ORDERED: morphine CARPU-JECT 4 MG/1 ML DISP.SYRIN IVPUSH ONE ×2 (15:31→16:58)
[2019-04-07] MEDS ORDERED: ACETAMINOPHEN 1000 MG/100 ML VIAL (NON FORMULARY) IVPB ONE (15:34)
[2019-04-07] MEDS ORDERED: ACETAMINOPHEN INJECTION 100 ML IVPB ONE (15:49)
[2019-04-07] MEDS ORDERED: morphine SULFATE 4 MG/ML VIAL ONE (15:49)
[2019-04-07 16:01] LABS: BASO % 0.4 % (0-2.0); EOS % 1.5 % (0-4.5); HEMATOCRIT 42.6 % (35.4-49); HEMOGLOBIN 14.2 GM/dL (11.7-16.9); LYMPH % 39.1 % (8-40); MCH 31.5 pg (25.7-33.7); MCHC 33.3 g/dl (32.0-35.9); MEAN CELL VOLUME 94.4 fl (80-96); MEAN PLT VOLUME 7.9 fl (7.5-11.1); PLATELET COUNT 280 K/MM3 (134-434); RBC 4.51 M/mm3 (4.00-5.60); WHITE BLOOD COUNT 6.2 K/mm3 (4.0-10.0)
[2019-04-07 16:28] LABS: BILIRUBIN,TOTAL 0.7 mg/dL (0.2-1); BLOOD UREA NITROGEN 11.9 mg/dL (7-18); CALCIUM 9.3 mg/dL (8.5-10.1); CREATININE 1.2 mg/dL (0.55-1.3); POTASSIUM 4.1 mmol/L (3.5-5.1); TOT PROT 7.4 g/dl (6.4-8.2)
[2019-04-07 16:36] LABS: INR 1.1 (0.83-1.09)
[2019-04-07] MEDS ORDERED: SODIUM CHLORIDE 0.9% 500 ML INFUS.BAG IV ONE (16:45)
--- NOTE | 2019-04-07 16:58 | PDOC ---
Attending Attestation - Resident Resident Name: Gaurav Godfrey - ED Attending Attestation I have performed the following: I have examined & evaluated the patient, The case was reviewed & discussed with the resident, I agree w/resident's findings & plan, Exceptions are as noted - HPI HPI: 04/07/19 16:59 59 M with h/o inguinal hernia repairs presenting with abdominal pain. Pt states that he has had a hernia in the middle of his abdomen for years. It will occasionally bulge out, but he is normally able to self-reduce it. However, since last night, the hernia has been hard and protruding, unable to reduce. He denies N/V. Last BM was 2 days ago. Denies F/C. - Physicial Exam PE: 04/07/19 17:00 "GENERAL: Awake, alert, and fully oriented, in no acute distress. HEAD: No signs of trauma EYES: PERRLA, EOMI, sclera anicteric, conjunctiva clear ENT: Auricles normal inspection, hearing grossly normal, nares patent, oropharynx clear without exudates. Moist mucosa NECK: Nontender, no stepoffs, Normal ROM, supple, no lymphadenopathy, JVD, or masses LUNGS: Breath sounds equal, clear to auscultation bilaterally. No wheezes, and no crackles HEART: Regular rate and rhythm, normal S1 and S2, no murmurs, rubs or gallops ABDOMEN: + large ventral hernia, non-reducible at bedside, firm and tender to palpation, no skin changes EXTREMITIES: Normal range of motion, no edema. No clubbing or cyanosis. No cords, erythema, or tenderness NEUROLOGICAL: Cranial nerves II through XII intact. 5/5 strength and sensation in all extremities, Normal speech, normal gait, normal cerebellar function SKIN: Warm, Dry, normal turgor, no rashes or lesions noted. - Medical Decision Making 04/07/19 17:01 59 M with incarcerated ventral hernia. No obstructive symptoms at this time. No skin changes or other signs of strangulation. - Labs - CTAP - Pain control - Trendelenberg position + ice pack applied 04/07/19 18:29 CT shows 2 ventral hernias, one of which is incarcerated. Still unable to manually reduce hernia Will consult surgery 04/07/19 18:42 Dr. Barrientos aware of pt, will take to OR tomorrow.
[2019-04-07] MEDS ORDERED: MORPHINE SULFATE 2 MG/ML VIAL ONE (17:47)
[2019-04-07] MEDS ORDERED: CEFAZOLIN 3 GM in DEXTROSE 5%-WATER - 50 ML IVPB ONE (18:42)
[2019-04-07] MEDS ORDERED: POTASSIUM CHLORIDE 10 MEQ in DEXTROSE 5%-NORMAL SALINE 1,000 ML IVPB SCH (18:45)
--- NOTE | 2019-04-07 21:00 | PN ---
Teaching Attending Note Name of Resident: Kaleigh Nuñez ATTENDING PHYSICIAN STATEMENT I saw and evaluated the patient. I reviewed the resident's note and discussed the case with the resident. I agree with the resident's findings and plan as documented. SUBJECTIVE: Patient is a 59 year old man with a PMH of HTN, HLD, Tobacco use, Marijuana use , Gout and Morbid obesity presenting with hernia pain. Has chronic small non painful hernia superior-left lateral to umbilicus for the past 9 months. Two days ago hernia became hard, painful, grown to [id number]. Took ibuprofen, tylenol , percocet for pain, last took anything yesterday. Denies past abdominal surgery. Last bowel movement 2 days ago which was normal. Last ate/drank 8am this morning. Has another non painful hernia inferior-right lateral to umbilicus for past 9 months measuring 7x8cm - never medically evaluated. Denies fever, nausea, vomiting, chest pain, SOB, loss of appetite, urinary changes, diarrhea, headache or dizziness. Has had constipation for 2 days. No sick contacts or recent travel. Denies alcohol use. Has FH of DM, premature CAD and CVA. OBJECTIVE: Alert Vital Signs Period Temp Pulse Resp BP Sys/Chavez Pulse Ox Last 24 Hr 97.5 F-98.2 F 79-100 18-24 113-151/57-111 95-98 HEENT: No Jaundice, eye redness or discharge, PERRLA, EOMI. Normocephalic, atraumatic. External ears are normal and hearing is grossly intact. No nasal discharge. Neck: Supple, nontender. No palpable adenopathy or thyromegaly. No JVD Chest: Good effort. Clear to auscultation and percussion. Heart: Regular. No S3, rub or murmur Abdomen: Not distended, soft; 2 nonreducible ventral herniasl, tender to palpation; no HSM. No rebound or guarding. Normal bowel sounds. Ext: Peripheral pulses intact. No leg edema. Skin: Warm and dry. No petechiae, rash or ecchymosis. Neuro: Alert. Oriented x3. CN 2-12 grossly intact. Sensation grossly intact in all four extremities and DTR are symmetric. Psych: Appropriate mood and affect. Good insight. Current Medications Generic Name Dose Route Start Last Admin Trade Name Freq PRN Reason Stop Dose Admin Potassium Chloride 10 meq/ 1,005 mls @ 42 mls/hr 04/07/19 18:45 04/07/19 20: 17 Dextrose/Sodium Chloride IVPB 42 mls/hr ASDIR GLORIA Administration Abnormal Lab Results 04/07/19 04/07/19 15:45 15:45 INR 1.10 H Anion Gap 6 L Random Glucose 110 H ASSESSMENT AND PLAN: 1. Incacerated hernia - No obvious precipitating factor. CT Abdomen/Pelvis showed "Two ventral hernias. The proximal hernia which is located 12-13 cm below the xiphoid process demonstrates a ventral defect in the median raphe of the rectus abdominal muscles that measures 1.9 cm in craniocaudal dimension and 2.4 cm in transverse dimension. The hernia sac measures 10 cm in diameter and contains omental fat and fluid. Attenuation of the fat is noted particularly as it enters the ventral defect from the abdomen. The second defect is below the first and again midline centimeter the median wrap the rectus abdominal muscles by 5.0 cm caudally. The defect measures 3.4 cm in craniocaudal dimension and up to 4.6 cm in transverse dimension and is periumbilical. Again omental fat is included within the hernia sac with the hernia sac measuring up to 12.8 cm in diameter. The fat within the hernia sac shows no increased attenuation or fluid accumulation. No ischemic change as it enters the hernia. No bowel contents". Surgery consulted and will see patient in the morning. EKG shows NSR with PACs and RBBB. Will keep him NPO, give IV NS, use IV morphine for pain control get UA and provide bowel regimen. Will continue comprehensive care for all of patients comorbid conditions. 2. Tobacco Use Counseled on risks associated with tobacco use. We will provide patient all the necessary assistance to facilitate smoking cessation and prescribe Nicotine patch. 3. Morbd obesity Counseled on the risks associated with morbid obesity. Will provide patient all the necessary assistance, counseling and positive reinforcement to facilitate weight loss. Consult director of creative services. 4. Hypertension - Restart suitable outpatient antihypertensive drugs when clinically appropriate. Revise regimen to ensure [id number] excellent BP control and personnel counselor patient on the injurious effects of uncontrolled hypertension. Nonpharmacologic measures to control hypertension like weight loss , salt restriction and exercise discussed. Importance of adherence to treatment regimen and attainment of normotension emphasized. 5. DVT prophylaxis - SCD for now since he may be going for surgery. 6. Advance directives - Full code
[2019-04-07] MEDS ORDERED: DEXTROSE 5%-LACTATED RINGERS 1,000 ML IV SCH ×2 (22:15)
--- NOTE | 2019-04-07 22:23 | HP ---
CHIEF COMPLAINT: abdominal hernia pain and constipation PCP: none HISTORY OF PRESENT ILLNESS: 59 yo M PMH of HTN, HFrEF, HLD, lumbar spine herniations, gout, morbid obesity presents to ED for worsening abdominal hernia. pt states that 2 days ago he was carrying groceries when he noticed increased pain in his abdomen. he states that he noticed the 2nd hernia and was not able to push it back in and has been very painful. he tried taking ibuprofen and oxycontin without relief. the hernia underneath has been present for over a year and he has been able to reduce it in the last 2 days. ER course was notable for: (1)CT abdomen/ pelvis (2)ancef Recent Travel: denies PAST MEDICAL HISTORY: see HPI PAST SURGICAL HISTORY: b/l inguinal hernia repair Social History: Smoking:smokes 6 cigarettes x 3 years Alcohol:social Drugs: marijuana Family Hx: brother of [place] at 43; Sister CVA x 2 , [place]; Father -DM Allergies No Known Allergies Allergy (Verified 04/07/19 15:41) HOME MEDICATIONS: REVIEW OF SYSTEMS CONSTITUTIONAL: Absent: fever, chills, diaphoresis, generalized weakness, malaise, loss of appetite, weight change HEENT: Absent: rhinorrhea, nasal congestion, throat pain, throat swelling, difficulty swallowing, mouth swelling, ear pain, eye pain, visual changes CARDIOVASCULAR: Absent: chest pain, syncope, palpitations, irregular heart rate, lightheadedness , peripheral edema RESPIRATORY: Absent: cough, shortness of breath, dyspnea with exertion, orthopnea, wheezing, stridor, hemoptysis GASTROINTESTINAL: Present: abdominal pain , constipation Absent:abdominal distension, nausea, vomiting, diarrhea, melena, hematochezia GENITOURINARY: Absent: dysuria, frequency, urgency, hesitancy, hematuria, flank pain, genital pain MUSCULOSKELETAL: Absent: myalgia, arthralgia, joint swelling, back pain, neck pain SKIN: Absent: rash, itching, pallor HEMATOLOGIC/IMMUNOLOGIC: Absent: easy bleeding, easy bruising, lymphadenopathy, frequent infections ENDOCRINE: Absent: unexplained weight gain, unexplained weight loss, heat intolerance, cold intolerance NEUROLOGIC: Absent: headache, focal weakness or paresthesias, dizziness, unsteady gait, seizure, mental status changes, bladder or bowel incontinence PHYSICAL EXAMINATION Vital Signs - 24 hr 04/07/19 04/07/19 04/07/19 15:42 16:03 19:11 Temperature 98.2 F Pulse Rate 100 H Pulse Rate [ 82 Right Radial] Respiratory 24 H 20 Rate Blood Pressure 113/57 L Blood Pressure 151/111 H [Left Arm] O2 Sat by Pulse 96 98 95 Oximetry (%) 04/07/19 20:40 Temperature 97.5 F L Pulse Rate Pulse Rate [ 79 Right Radial] Respiratory 18 Rate Blood Pressure Blood Pressure 137/78 [Left Arm] O2 Sat by Pulse 96 Oximetry (%) GENERAL: Awake, alert, and fully oriented, in no acute distress. obese male HEAD: Normal with no signs of trauma. EYES: Pupils equal, round and reactive to light, extraocular movements intact EARS, NOSE, THROAT:oropharynx clear without exudates. Moist mucous membranes. large lips, large tongue NECK: Normal range of motion, supple without lymphadenopathy LUNGS: Breath sounds equal, clear to auscultation bilaterally. No wheezes, and no crackles. No accessory muscle use. HEART: Regular rate and rhythm, normal S1 and S2 without murmur, rub or gallop. ABDOMEN: hypoactive bowel sounds. 2 ventral hernias. superior ventral hernia is tender (10x10 non reducible mass superior/L lateral to umbilicus. Not erythematous. inferior of 2 hernias is also not reducible 7x7cm hernia inferior /R lateral ), MUSCULOSKELETAL: Normal range of motion at all joints. No bony deformities or tenderness. No CVA tenderness. UPPER EXTREMITIES: 2+ pulses, warm, well-perfused. No cyanosis. No clubbing. No peripheral edema. LOWER EXTREMITIES: 2+ pulses, warm, well-perfused. No calf tenderness. No peripheral edema. NEUROLOGICAL: Cranial nerves II-XII intact. Normal speech PSYCHIATRIC: Cooperative. Good eye contact. Appropriate mood and affect. SKIN: Warm, dry, normal turgor, no rashes or lesions noted, normal capillary refill. Laboratory Last Values WBC 6.2 K/mm3 (4.0-10.0) 04/07/19 15:45 RBC 4.51 M/mm3 (4.00-5.60) 04/07/19 15:45 Hgb 14.2 GM/dL (11.7-16.9) 04/07/19 15:45 Hct 42.6 % (35.4-49) 04/07/19 15:45 MCV 94.4 fl (80-96) 04/07/19 15:45 MCH 31.5 pg (25.7-33.7) 04/07/19 15:45 MCHC 33.3 g/dl (32.0-35.9) 04/07/19 15:45 RDW 13.0 % (11.9-15.9) 04/07/19 15:45 Plt Count 280 K/MM3 (134-434) D 04/07/19 15:45 MPV 7.9 fl (7.5-11.1) 04/07/19 15:45 Absolute Neuts (auto) 3.1 K/mm3 (1.5-8.0) 04/07/19 15:45 Neutrophils % 50.0 % (42.8-82.8) D 04/07/19 15:45 Lymphocytes % 39.1 % (8-40) D 04/07/19 15:45 Monocytes % 9.0 % (3.8-10.2) 04/07/19 15:45 Eosinophils % 1.5 % (0-4.5) D 04/07/19 15:45 Basophils % 0.4 % (0-2.0) 04/07/19 15:45 Nucleated RBC % 0 % (0-0) 04/07/19 15:45 PT with INR 13.00 SEC (9.7-13.0) 04/07/19 15:45 INR 1.10 (0.83-1.09) H 04/07/19 15:45 Sodium 137 mmol/L (136-145) 04/07/19 15:45 Potassium 4.1 mmol/L (3.5-5.1) 04/07/19 15:45 Chloride 101 mmol/L (98-107) 04/07/19 15:45 Carbon Dioxide 30 mmol/L (21-32) 04/07/19 15:45 Anion Gap 6 MMOL/L (8-16) L 04/07/19 15:45 BUN 11.9 mg/dL (7-18) 04/07/19 15:45 Creatinine 1.2 mg/dL (0.55-1.3) 04/07/19 15:45 Est GFR (CKD-EPI)AfAm 76.79 04/07/19 15:45 Est GFR (CKD-EPI)NonAf 66.26 04/07/19 15:45 Random Glucose 110 mg/dL (74-106) H 04/07/19 15:45 Lactic Acid 1.1 mmol/L (0.4-2.0) 04/07/19 15:45 Calcium 9.3 mg/dL (8.5-10.1) 04/07/19 15:45 Total Bilirubin 0.7 mg/dL (0.2-1) 04/07/19 15:45 AST 22 U/L (15-37) 04/07/19 15:45 ALT 26 U/L (13-61) 04/07/19 15:45 Alkaline Phosphatase 88 U/L (45-117) 04/07/19 15:45 Total Protein 7.4 g/dl (6.4-8.2) 04/07/19 15:45 Albumin 4.0 g/dl (3.4-5.0) 04/07/19 15:45 Blood Type B POSITIVE 04/07/19 15:45 Antibody Screen Negative 04/07/19 15:45 CT abdomen Pelvis: 2 ventral hernias as described above. The hernia located closer to the xiphoid process demonstrates either fibrosis or incarceration with fluid accumulation and increased attenuation of the omental fat within the hernia. The lower ventral hernia, which is larger, shows no evidence of incarceration. No bowel contents in either hernia. Otherwise, normal CT of the abdomen and pelvis. No evidence of bowel obstruction or ileus. No acute inflammatory changes in the right or left lower quadrant. The appendix is well seen. ASSESSMENT/PLAN: 59 yo M PMH of HTN, HFrEF, HLD, lumbar spine herniations, gout, morbid obesity presents to ED for worsening abdominal hernia. Pt is admitted for incarcerated hernia Incarcerated Ventral Hernia -CT Abdomen Pelvis results above - Surgery ( Dr. Barrientos)consulted -continue maintenance fluids, cefazolin -NPO after midnight - Pt has hx of HFrEF, last echo 2017. mild LV dilation with mild global hypokinesis, LVEF 45%-50% mild AI,MR,TR. cardiac optimization appreciated -IV morphine for pain HTN -continue to monitor F/E/N -continue D5LR @ 50 mls/hr -monitor lytes -NPO after midnight DVT ppx: SCD Dispo: admit to medicine ATTENDING PHYSICIAN STATEMENT I saw and evaluated the patient. I reviewed the resident's note and discussed the case with the resident. I agree with the resident's findings and plan as documented. SUBJECTIVE: OBJECTIVE: ASSESSMENT AND PLAN:
[2019-04-07] MEDS ORDERED: MELATONIN 5 MG TABLETS PO ONE (23:05)
[2019-04-07] MEDS ORDERED: MELATONIN 5 MG TABLETS PO PRN (23:06)
[2019-04-07] MEDS: MORPHINE SULFATE 2 MG/ML VIAL IVPUSH PRN (23:44)
[2019-04-08 00:20] VITALS: BMI 44.6
[2019-04-08 01:54] LABS: PH,URINE 6.5 (5.0-8.0); URINE APPEARANCE CLEAR; URINE BILIRUBIN NEGATIVE (NEGATIVE); URINE COLOR YELLOW; URINE GLUCOSE (UA) NEGATIVE (NEGATIVE); URINE KETONE NEGATIVE (NEGATIVE); URINE LEUK ESTERASE NEGATIVE (NEGATIVE); URINE NITRITE NEGATIVE (NEGATIVE); URINE PROTEIN NEGATIVE (NEGATIVE); URINE UROBILINOGEN 0.2 mg/dL (0.2-1.0)
[2019-04-08] MEDS: MORPHINE SULFATE 2 MG/ML VIAL IVPUSH PRN (06:28)
--- NOTE | 2019-04-08 08:07 | PN ---
Progress Note, Physician Chief Complaint: incarcerated hernia. Pending hernia repair with Dr Barrientos History of Present Illness: 59 yo M PMH of HTN, systolic dysfunction HLD, lumbar spine herniations, gout, morbid obesity presents to ED for worsening abdominal hernia. Unable to reduce. Emergent hernia repair for incarceration - Current Medication List Current Medications: Active Medications Dextrose/Lactated Ringer's (D5-Lr -) 1,000 mls @ 50 mls/hr IV ASDIR GLORIA Last Admin: 04/07/19 23:00 Dose: 50 mls/hr Melatonin (Melatonin) 5 mg PO ONCE PRN PRN Reason: INSOMNIA Last Admin: 04/07/19 23:44 Dose: 5 mg Morphine Sulfate (Morphine Sulfate) 2 mg IVPUSH Q4H PRN PRN Reason: PAIN LEVEL 7 - 10 Last Admin: 04/08/19 06:28 Dose: 2 mg - Objective Vital Signs: Vital Signs Temperature 98.2 F 04/08/19 05:57 Pulse Rate 82 04/08/19 05:57 Respiratory Rate 20 04/08/19 05:57 Blood Pressure 137/87 04/08/19 05:57 O2 Sat by Pulse Oximetry (%) 96 04/07/19 20:40 Additional Findings/Remarks: Constitutional: Yes: Well Nourished, No Distress, Calm Eyes: Yes: WNL, Conjunctiva Clear, EOM Intact HENT: Yes: WNL, Atraumatic, Normocephalic Neck: Yes: WNL, Supple, Trachea Midline Cardiovascular: Yes: WNL, Regular Rate and Rhythm Respiratory: Yes: WNL, Regular, CTA Bilaterally Gastrointestinal: Yes: Abdomen, Obese, Hernia (2 ventral hernias. superior ventral hernia is tender (10x10 non reducible mass superior/L lateral to umbilicus. inferior of 2 hernias is also not reducible 7x7cm hernia inferior/R lateral ),), Hypoactive Bowel Sounds ...Rectal Exam: Yes: Deferred Renal/: Yes: WNL Musculoskeletal: Yes: WNL Extremities: Yes: WNL Edema: No Peripheral Pulses WNL: Yes Peripheral Pulses: Left Radial: 2+, Right Radial: 2+, Left Doralis Pedis: 2+, Right Dorsalis Pedis: 2+, Left Femoral: 2+, Right Femoral: 2+ Integumentary: Yes: WNL Neurological: Yes: WNL ...Motor Strength: WNL Psychiatric: Yes: WNL Labs: INR, PTT INR 1.10 (0.83-1.09) H 04/07/19 15:45 - ....Imaging Other: Report Reviewed ( Pt has hx of HFrEF, last echo 2017. mild LV dilation with mild global hypokinesis, LVEF 45%-50% mild AI,MR,TR. cardiac optimization appreciated -IV morphine for pain) Problem List - Problems (1) Gout Assessment/Plan: no active gout Code(s): M10.9 - GOUT, UNSPECIFIED (2) Prophylactic measure Assessment/Plan: FEN NPO for OR IVF @ 125 Electrolytes: monitor & replete as needed DVT moderate risk start heparin tmrw if no surgical complications Dispo transfer to tele for cardiac monitoring after OR full code discharge planning Code(s): Z29.9 - ENCOUNTER FOR PROPHYLACTIC MEASURES, UNSPECIFIED (3) Incarcerated hernia Assessment/Plan: emergent OR planned for hernia repair Code(s): K46.0 - UNSP ABDOMINAL HERNIA WITH OBSTRUCTION, WITHOUT GANGRENE (4) Morbid obesity with BMI of 40.0-44.9, adult Assessment/Plan: NPO presently will memorial counselor on weight loss/caloric intake post-op Code(s): E66.01 - MORBID (SEVERE) OBESITY DUE TO EXCESS CALORIES; Z68.41 - BODY MASS INDEX (BMI) 40.0-44.9, ADULT (5) Hypertension Assessment/Plan: on no home meds seen by principal investigator in past with no follow up start lisinipril 5mg and up-titrate start toprol 50mg Code(s): I10 - ESSENTIAL (PRIMARY) HYPERTENSION Qualifiers: Hypertension type: unspecified Qualified Code(s): I10 - Essential (primary ) hypertension (6) Myocardial ischemia Assessment/Plan: R/O OR post-operatively trend troponins, ekg Dr Steel to see pt Code(s): I25.9 - CHRONIC ISCHEMIC HEART DISEASE, UNSPECIFIED Visit type - Emergency Visit Emergency Visit: Yes ED Registration Date: 04/07/19 Care time: The patient presented to the Emergency Department on the above date and was hospitalized for further evaluation of their emergent condition. - New Patient This patient is new to me today: Yes Date on this admission: 04/08/19 - Critical Care Critical Care patient: No - Discharge Referral Referred to [facility] No
--- NOTE | 2019-04-08 08:15 | CONSULT ---
- Consultation REQUESTING PROVIDER: ED MD CONSULT REQUEST: We have been asked to surgically evaluate this patient for abdominal wall hernias. PCP:LAMAR Rodriguez HISTORY OF PRESENT ILLNESS: CTSP who is a 59 y/o A/A male w/known abdominal wall hernias who presented w/ 1 of the 2 hernias causing increased pain associated w/ n/v and not reducible as in the past; he came to the ED for evaluation; his other known hernia is easily reducible a/t him. He was here w/ CP and gout in the past and was previously seen by Cardiology; he did not have outpatient f/u ??. PMHx: CHF/gout PSHx: b/l inguinal hernia repair Allergies Allergy/AdvReac Type Severity Reaction Status Date / Time No Known Allergies Allergy Verified 04/07/19 15:41 REVIEW OF SYSTEMS: CONSTITUTIONAL: Absent: fever, chills, diaphoresis, generalized weakness, malaise, loss of appetite, weight change CARDIOVASCULAR: Absent: chest pain, syncope, palpitations, irregular heart rate, lightheadedness , peripheral edema RESPIRATORY: Absent: cough, shortness of breath, dyspnea with exertion, wheezing, stridor, hemoptysis GASTROINTESTINAL: Present: abdominal pain, abdominal distension, nausea, vomiting, GENITOURINARY: Absent: dysuria, frequency, urgency, hesitancy, hematuria, flank pain, genital pain MUSCULOSKELETAL: Absent: myalgia, arthralgia, joint swelling, back pain, neck pain SKIN: Absent: rash, itching, pallor HEMATOLOGIC/IMMUNOLOGIC: Absent: easy bleeding, easy bruising, lymphadenopathy NEUROLOGIC: Absent: headache, focal weakness, paresthesias, dizziness, unsteady gait, seizure, mental status changes, bladder or bowel incontinence PSYCHIATRIC: Absent: anxiety, depression, suicidal or homicidal ideation, hallucinations. PHYSICAL EXAM: GENERAL: Awake, alert, and fully oriented, in slight acute distress. HEAD: Normal with no signs of trauma. ABDOMEN: Soft, tender over non reducible ventral hernia and reducible umbilical hernia w/redundant skin, not distended, normoactive bowel sounds, voluntary guarding, no rebound, . No organomegaly. MUSCULOSKELETAL: Normal ROM at all joints. No bony deformities or tenderness. No CVA tenderness. UPPER EXTREMITIES: 2+ pulses, warm, well-perfused. No cyanosis. Cap refill <2 seconds. No peripheral edema. LOWER EXTREMITIES: 2+ pulses, warm, well-perfused. No calf tenderness. No peripheral edema. NEUROLOGICAL: Normal speech, gait not observed. PSYCH: Cooperative. Good eye contact. Appropriate mood and affect. SKIN: Warm, dry, normal turgor, no rashes or lesions noted. Vital Signs Temperature 98.2 F 04/08/19 05:57 Pulse Rate 82 04/08/19 05:57 Respiratory Rate 20 04/08/19 05:57 Blood Pressure 137/87 04/08/19 05:57 O2 Sat by Pulse Oximetry (%) 96 04/07/19 20:40 Lab Results WBC 6.2 K/mm3 (4.0-10.0) 04/07/19 15:45 RBC 4.51 M/mm3 (4.00-5.60) 04/07/19 15:45 Hgb 14.2 GM/dL (11.7-16.9) 04/07/19 15:45 Hct 42.6 % (35.4-49) 04/07/19 15:45 MCV 94.4 fl (80-96) 04/07/19 15:45 MCHC 33.3 g/dl (32.0-35.9) 04/07/19 15:45 RDW 13.0 % (11.9-15.9) 04/07/19 15:45 Plt Count 280 K/MM3 (134-434) D 04/07/19 15:45 Sodium 137 mmol/L (136-145) 04/07/19 15:45 Potassium 4.1 mmol/L (3.5-5.1) 04/07/19 15:45 Chloride 101 mmol/L (98-107) 04/07/19 15:45 Carbon Dioxide 30 mmol/L (21-32) 04/07/19 15:45 Anion Gap 6 MMOL/L (8-16) L 04/07/19 15:45 BUN 11.9 mg/dL (7-18) 04/07/19 15:45 Creatinine 1.2 mg/dL (0.55-1.3) 04/07/19 15:45 Random Glucose 110 mg/dL (74-106) H 04/07/19 15:45 Calcium 9.3 mg/dL (8.5-10.1) 04/07/19 15:45 Blood Type B POSITIVE 04/07/19 15:45 Antibody Screen Negative 04/07/19 15:45 INR 1.10 (0.83-1.09) H 04/07/19 15:45 CT scan a/p reviewed IMP: incarcerated ventral hernia and non incarcerated umbilical hernia. PLAN: Discussion of open repiar w/possible mesh of both hernias; r/b/t/a/'s d/w the patient and he will give informed consent; he understands there is a high risk of recurrence given his morbid obesity and smoking history. Hamzah Barrientos MD FACS
[2019-04-08 08:16] LABS: BASO % 0.3 % (0-2.0); HEMATOCRIT 39.8 % (35.4-49); HEMOGLOBIN 13.4 GM/dL (11.7-16.9); MCH 31.9 pg (25.7-33.7); MCHC 33.7 g/dl (32.0-35.9); MEAN CELL VOLUME 94.7 fl (80-96); MEAN PLT VOLUME 8.5 fl (7.5-11.1); MONO % 7.8 % (3.8-10.2); NEUT % 65.9 % (42.8-82.8); PLATELET COUNT 271 K/MM3 (134-434); WHITE BLOOD COUNT 5.7 K/mm3 (4.0-10.0)
--- NOTE | 2019-04-08 08:29 | HOSP ---
Subjective - Review of Symptoms Events since last encounter: 59 yo M PMH of HTN, HFrEF, HLD, lumbar spine herniations, gout, morbid obesity presents to ED for worsening abdominal hernia. Seen by surgery and scheduled for emergent hernia repair. Physical Examination Vital Signs: Vital Signs Temperature 98.2 F 04/08/19 05:57 Pulse Rate 82 04/08/19 05:57 Respiratory Rate 20 04/08/19 05:57 Blood Pressure 137/87 04/08/19 05:57 O2 Sat by Pulse Oximetry (%) 96 04/07/19 20:40 Constitutional: Yes: Well Nourished, No Distress, Calm Eyes: Yes: WNL, Conjunctiva Clear, EOM Intact HENT: Yes: WNL, Atraumatic, Normocephalic Neck: Yes: WNL, Supple, Trachea Midline Cardiovascular: Yes: WNL, Regular Rate and Rhythm Respiratory: Yes: WNL, Regular, CTA Bilaterally Gastrointestinal: Yes: Abdomen, Obese, Hernia (2 ventral hernias. superior ventral hernia is tender (10x10 non reducible mass superior/L lateral to umbilicus. inferior of 2 hernias is also not reducible 7x7cm hernia inferior/R lateral ),), Hypoactive Bowel Sounds ...Rectal Exam: Yes: Deferred Renal/: Yes: WNL Musculoskeletal: Yes: WNL Extremities: Yes: WNL Edema: No Peripheral Pulses WNL: Yes Peripheral Pulses: Left Radial: 2+, Right Radial: 2+, Left Doralis Pedis: 2+, Right Dorsalis Pedis: 2+, Left Femoral: 2+, Right Femoral: 2+ Integumentary: Yes: WNL Neurological: Yes: WNL ...Motor Strength: WNL Psychiatric: Yes: WNL Labs: CBC, BMP 04/08/19 07:05 Hospitalist Encounter Assessment: 59 y/e male with incarcerated hernias scheduled for emergent hernia repair with Dr Barrientos. Morbid obesity, untreated htn and hld with smoking history and marijuana use. Family history of [place]-brother of [place] at 43; Sister CVA x 2 , [place]; Father -[place]. Seen by meteorological equipment repairer in 2018 after presenting with chest pain.last echo 2018. mild LV dilation with mild global hypokinesis, LVEF 45%-50 % mild AI,MR,TR. No follow up cardiac care. EKG now with PACs, RBBB with no ischemia changes. Troponin pending, no complaints of chest pain. Patient does not appear to be in heart failure, not having and signficant arrhthmias, valves not stenotic on last TTE, and no active ischemia. Given history of [place], smoking, untreated htn/hld and no cardiac follow up patient is high risk for surgery however surgery is emergent. Risk and benefits explained to patient and understanding verbalized. Will proceed with surgery with close monitoring mel-operatively and post-op.
[2019-04-08 08:43] LABS: INR 1.12 (0.83-1.09); PROTHROMBIN TIME (PATIENT) 13.2 SEC (9.7-13.0)
[2019-04-08 08:52] LABS: ALBUMIN 3.8 g/dl (3.4-5.0); ALK PHOS 86 U/L (45-117); ANION GAP 7 MMOL/L (8-16); BILIRUBIN,TOTAL 0.6 mg/dL (0.2-1); BLOOD UREA NITROGEN 10.6 mg/dL (7-18); CHLORIDE 103 mmol/L (98-107); CO2 28 mmol/L (21-32); GLUCOSE,RANDOM 104 mg/dL (74-106); MAGNESIUM 2.1 mg/dL (1.8-2.4); PHOSPHOROUS 4.1 mg/dL (2.5-4.9); POTASSIUM 4.2 mmol/L (3.5-5.1); SGOT/AST 18 U/L (15-37); SGPT/ALT 28 U/L (13-61); SODIUM 138 mmol/L (136-145); TOT PROT 7.4 g/dl (6.4-8.2)
[2019-04-08] MEDS ORDERED: DEXAMETHASONE SOD PHOSPHATE/PF 10 MG/ML SDV ONE (09:05)
[2019-04-08] MEDS ORDERED: ROPIVACAINE HCL 0.5% 30ML VIAL ONE (09:05)
[2019-04-08] MEDS ORDERED: PROPOFOL 20 ML ONE ×3 (09:19→09:58)
[2019-04-08] MEDS ORDERED: LIDOCAINE HCL/PF 2% SDV 5ML VIAL ONE (09:19)
[2019-04-08] MEDS ORDERED: SUCCINYLCHOLINE CHLORIDE 200 MG/10 ML SYRINGE ONE (09:20)
[2019-04-08] MEDS ORDERED: ROCURONIUM BROMIDE 50 MG/5 ML SYRINGE ONE ×2 (09:21→11:03)
[2019-04-08] MEDS ORDERED: MIDAZOLAM HCL 2 MG/2 ML SINGLE DOSE VIAL ONE (09:21)
--- NOTE | 2019-04-08 09:37 | CON.CARD ---
Consult Consult Specialty:: Cardiology Referred by:: Hospitalist Medicine Reason for Consultation:: Post-op CV evaluation - History of Present Illness Chief Complaint: Abd pain History of Present Illness: 59 yo M PMH of HTN, systolic dysfunction (LVEF 45-50%), HLD, lumbar spine herniations, gout, morbid obesity presents to ED for worsening abdominal hernia pain and inability to reduce. Seen by surgery and scheduled for urgent hernia repair with mesh. D/w WAITER/WAITRESS CABIN CLASS, as patient had no symptoms of active CHF, malignant arrhythmia, stenotic valve lesions or acute coronary syndrome, he was able to proceed with urgent hernia repair. Since repair of incarcerated ventral hernia ( primary) and repair of incarcerated umbilical hernia with mesh, patient reports incisional discomfort, chronic COBOS, but denies chest pain, palpitations, near or true syncope, palpitations, orthopnea, PND or LE edema. - History Source History Provided By: Patient Limitations to Obtaining History: No Limitations - Alcohol/Substance Use Hx Alcohol Use: Yes - Smoking History Smoking history: Current some day smoker Have you smoked in the past 12 months: Yes Aproximately how many cigarettes per day: 6 Home Medications - Allergies Allergies/Adverse Reactions: Allergies Allergy/AdvReac Type Severity Reaction Status Date / Time No Known Allergies Allergy Verified 04/07/19 15:41 Review of Systems - Review of Systems Gastrointestinal: reports: Abdominal Pain Vital Signs: Vital Signs Temperature 98.2 F 04/08/19 05:57 Pulse Rate 82 04/08/19 05:57 Respiratory Rate 20 04/08/19 05:57 Blood Pressure 137/87 04/08/19 05:57 O2 Sat by Pulse Oximetry (%) 96 04/07/19 20:40 Constitutional: Yes: No Distress, Calm Neck: Yes: Supple Respiratory: Yes: Regular, CTA Bilaterally Gastrointestinal: Yes: Soft, Hypoactive Bowel Sounds Cardiovascular: Yes: Regular Rate and Rhythm JVD: No Carotid Bruit: No Heart Sounds: Yes: S1, S2 Edema: No - Other Data Labs, Other Data: CBC, BMP 04/08/19 07:05 04/08/19 07:05 INR, PTT INR 1.12 (0.83-1.09) H 04/08/19 07:05 NSR @ 77 PAC, RBBB Ejection Fraction %: LVEF > or = 40 % Imaging - Results Cat Scan: Report Reviewed Problem List - Problems (1) Systolic dysfunction, left ventricle Code(s): I51.9 - HEART DISEASE, UNSPECIFIED (2) Hypertensive heart disease Code(s): I11.9 - HYPERTENSIVE HEART DISEASE WITHOUT HEART FAILURE Qualifiers: Heart failure presence: without heart failure Qualified Code(s): I11.9 - Hypertensive heart disease without heart failure (3) Incarcerated hernia Code(s): K46.0 - UNSP ABDOMINAL HERNIA WITH OBSTRUCTION, WITHOUT GANGRENE (4) Morbid obesity with BMI of 40.0-44.9, adult Code(s): E66.01 - MORBID (SEVERE) OBESITY DUE TO EXCESS CALORIES; Z68.41 - BODY MASS INDEX (BMI) 40.0-44.9, ADULT Assessment/Plan Echocardiogram 01/15/2018 showed mild LV dilatation with mild global hypokinesis. LVEF = 45-50%. Normal RV. Normal LA and RA in size. Mild AI/MR/TR. 1. Incarcerated ventral and umbilical hernia POD#0 Repair of incarcerated ventral hernia (primary), repair of incarcerated umbilical hernia with mesh 2. Mild LV systolic dysfunction 3. Hypertensive heart disease 4. Rule out OSAS 5. Tobacco abuse P:1. Continue lisinopril 5 qd, Toprol XL 50 qd 2. Routine post-op care 3. Patient should undergo repeat echocardiogram to reassess LV fxn and ETT Myoview r/o ischemia as outpatient 4. Sleep study as outpatient, tobacco cessation 5. Thank you for consultative opportunity
[2019-04-08] MEDS ORDERED: ceFAZolin SODIUM 1 GM VIAL IVPB ONE (09:52)
[2019-04-08] MEDS ORDERED: ceFAZolin SODIUM 1 GM VIAL ONE (09:58)
[2019-04-08] MEDS ORDERED: DEXAMETHASONE SOD PHOSPHATE 4 MG/1 ML VIAL ONE (09:58)
--- NOTE | 2019-04-08 10:07 | EKG ---
Test Reason : Blood Pressure : / mmHG Vent. Rate : 077 BPM Atrial Rate : 077 BPM P-R Int : 162 ms QRS Dur : 146 ms QT Int : 422 ms P-R-T Axes : 057 269 053 degrees QTc Int : 477 ms SINUS RHYTHM WITH PREMATURE ATRIAL COMPLEXES RIGHT BUNDLE BRANCH BLOCK ABNORMAL ECG WHEN COMPARED WITH ECG OF 25-JUN-2018 20:47, T WAVE VARIATION Confirmed by ASIA PRITCHETT MD ([id number]) on 04/08/2019 10:07:38 AM Referred By: Confirmed By:ASIA PRITCHETT MD
[2019-04-08] MEDS ORDERED: BENZOIN/ALOE VERA/STORAX/TOLU 58 ML BOTTLE ONE (11:48)
[2019-04-08] MEDS ORDERED: NEOSTIGMINE METHYLSULFATE 0.5 MG/ML - 10 ML MDV ONE (11:59)
[2019-04-08] MEDS ORDERED: GLYCOPYRROLATE 0.2 MG/1 ML VIAL ONE (11:59)
[2019-04-08] MEDS ORDERED: BACITRACIN 15 GM TUBE TOPICAL OINTMENT ONE (12:12)
[2019-04-08] MEDS ORDERED: PHENYLEPHRINE HCL 10 MG/1 ML SINGLE DOSE VIAL ONE (12:33)
[2019-04-08] MEDS ORDERED: MIDAZOLAM HCL 2 MG/2 ML SINGLE DOSE VIAL IVPUSH ONE ×3 (13:00→13:13)
[2019-04-08] MEDS ORDERED: IBUPROFEN 800 MG/8 ML IJ IVPB PRN ×3 (13:13→18:23)
[2019-04-08] MEDS ORDERED: ONDANSETRON 4 MG/2 ML VIAL IVPUSH PRN ×5 (13:13→18:23)
[2019-04-08] MEDS ORDERED: oxyCODONE HCL 5 MG TABLET PO PRN ×6 (13:14→18:23)
[2019-04-08] MEDS ORDERED: ACETAMINOPHEN 1000 MG/100 ML VIAL (NON FORMULARY) IVPB PRN ×4 (13:14→18:47)
[2019-04-08] MEDS ORDERED: LACTATED RINGERS SOLUTION 1,000 ML IV SCH ×2 (13:15→13:34)
[2019-04-08] MEDS ORDERED: DOCUSATE SODIUM 100 MG CAPSULE (FP) PO PRN ×3 (13:16→18:23)
--- NOTE | 2019-04-08 13:19 | OP ---
Operative Note - Note: Operative Date: 04/08/19 Pre-Operative Diagnosis: Incarcerated ventral and umbilical hernia Operation: Repair of incarcerated ventral hernia (primary), repair of incarcerated umbilical hernia with mesh Findings: as dictated Implants: as dictated Post-Operative Diagnosis: Same as Pre-op Surgeon: Hamzah Barrientos Gauntlet Pairer: Jose Martin Nguyen Anesthesiologist/OPERATIONS TRAINER: Lata Tuttle Anesthesia: General Specimens Removed: omentum, hernia sac Estimated Blood Loss (mls): 100 Drains, Volume Out (mls): 50 (ml yellow urine) Fluid Volume Replaced (mls): 1,700 (ml LR) Operative Report Dictated: Yes
--- NOTE | 2019-04-08 13:25 | SURG ---
Surgery Radiology Director Note Radiology Director: Jose Martin Nguyen PA-C (Suzy) Date of Service: 04/08/19 Diagnosis: Incarcerated ventral and umbilical hernia Procedure: Repair of incarcerated ventral hernia (primary), repair of incarcerated umbilical hernia with mesh I was present for the entirety of the operative procedure. For further detail, please refer to operative report.
[2019-04-08] MEDS ORDERED: MORPHINE SULFATE 2 MG/ML VIAL IVPUSH PRN ×2 (13:34→18:23)
[2019-04-08] MEDS ORDERED: MELATONIN 5 MG TABLETS PO PRN ×3 (13:34→18:47)
[2019-04-08] MEDS ORDERED: DEXTROSE 5%-LACTATED RINGERS 1,000 ML IV SCH ×2 (13:34→18:23)
--- NOTE | 2019-04-08 17:59 | HOSP ---
Physical Examination Vital Signs: Vital Signs Temperature 98.6 F 04/08/19 12:55 Pulse Rate 93 H 04/08/19 17:10 Respiratory Rate 20 04/08/19 17:10 Blood Pressure 138/87 04/08/19 17:10 O2 Sat by Pulse Oximetry (%) 98 04/08/19 17:10 Labs: CBC, BMP 04/08/19 07:05 04/08/19 07:05 Hospitalist Encounter Assessment: Post-op Trop .02 no ischemic changes on ekg no c/o chest pain mainatin on tele when cleared from PACU strict I/Os may need lasix post-op
[2019-04-08] MEDS ORDERED: LISINOPRIL 5 MG TABLET (FP) PO ONE (18:18)
[2019-04-08] MEDS ORDERED: CHLORHEXIDINE GLUCONATE 4% CLEANSER FOR DECOLONIZATION TP SCH (22:00)
[2019-04-08] MEDS ORDERED: MUPIROCIN 2% TOPICAL OINTMENT FOR DECOLONIZATION NS SCH ×4 (22:00)
[2019-04-09] MEDS ORDERED: ZOLPIDEM TARTRATE 5 MG TABLET PO ONE (01:39)
[2019-04-09] MEDS ORDERED: POLYETHYLENE GLYCOL 3350 119 GM BTL PO PRN ×3 (06:15)
[2019-04-09 06:38] LABS: BASO % 0.1 % (0-2.0); HEMATOCRIT 37.3 % (35.4-49); HEMOGLOBIN 12.3 GM/dL (11.7-16.9); MCH 31.3 pg (25.7-33.7); MEAN CELL VOLUME 95.1 fl (80-96); MEAN PLT VOLUME 8.1 fl (7.5-11.1); MONO % 5.6 % (3.8-10.2); NEUT % 86.3 % (42.8-82.8); PLATELET COUNT 278 K/MM3 (134-434); RBC 3.92 M/mm3 (4.00-5.60); WHITE BLOOD COUNT 12.7 K/mm3 (4.0-10.0)
[2019-04-09 07:11] LABS: ALBUMIN 3.6 g/dl (3.4-5.0); BILIRUBIN,TOTAL 0.8 mg/dL (0.2-1); BLOOD UREA NITROGEN 15.4 mg/dL (7-18); CREATININE 1.2 mg/dL (0.55-1.3); POTASSIUM 4.6 mmol/L (3.5-5.1); TOT PROT 7.2 g/dl (6.4-8.2)
--- NOTE | 2019-04-09 09:30 | EKG ---
Test Reason : Blood Pressure : / mmHG Vent. Rate : 098 BPM Atrial Rate : 098 BPM P-R Int : 160 ms QRS Dur : 156 ms QT Int : 408 ms P-R-T Axes : 049 267 042 degrees QTc Int : 520 ms NORMAL SINUS RHYTHM RIGHT BUNDLE BRANCH BLOCK ABNORMAL ECG Confirmed by Murtaza Zamora MD ([id number]) on 04/09/2019 9:30:00 AM Referred By: Confirmed By:Murtaza Zamora MD
--- NOTE | 2019-04-09 09:45 | PN ---
Physical Exam: SUBJECTIVE: Patient seen and examined, denies chest pain, denies shortness of breath, feels better and wants to go home. agrees to outpatient follow up with Dr. Barrientos, cardiology. Does not have a PCP and agrees to follow up on one assigned to him. OBJECTIVE: patient is a 59 year old male with a significant past medical history of hypertension,HFrEF, HLD, lumbar spine herniations, gout, morbid obesity presents to ED for worsening abdominal hernia. Seen by surgery and scheduled for emergent hernia repair. He is POD #1 of repair of incarcerated ventral hernia, repair of incarcerated umbilical hernia with mesh. -------- prolonged qtc @ 520 Patient without PCP. made him new appt as follows NEW PRIMARY CARE DOCTOR When: April 17, Monday Time; 11.[address]: [address] [place] [address] Doctor: Triston Mercer Bring: Picture ID, insurance card, discharge paperwork Vital Signs Period Temp Pulse Resp BP Sys/Chavez Pulse Ox Last 24 Hr 97.9 F-98.6 F 88-124 18-27 138-158/71-100 96-100 GENERAL: The patient is awake, alert, and fully oriented, in no acute distress. HEAD: Normal with no signs of trauma. EYES: PERRL, extraocular movements intact, sclera anicteric, conjunctiva clear. No ptosis. ENT: Ears normal, nares patent, oropharynx clear without exudates, moist mucous membranes. NECK: Trachea midline, full range of motion, supple. LUNGS: Breath sounds equal, clear to auscultation bilaterally, no wheezes, no crackles, no accessory muscle use. HEART: Regular rate and rhythm, S1, S2 without murmur, rub or gallop. ABDOMEN: Soft, nontender, obese abdomen, surgical dressing intact EXTREMITIES: 2+ pulses, warm, well-perfused, no edema. NEUROLOGICAL: . Normal speech, gait not observed. PSYCH: Normal mood, normal affect. Laboratory Results - last 24 hr 04/08/19 04/08/19 04/09/19 07:08 14:04 06:10 WBC 12.7 H RBC 3.92 L Hgb 12.3 Hct 37.3 MCV 95.1 MCH 31.3 MCHC 33.0 RDW 13.0 Plt Count 278 MPV 8.1 Absolute Neuts (auto) 11.0 H Neutrophils % 86.3 H D Lymphocytes % 8.0 D Monocytes % 5.6 Eosinophils % 0.0 D Basophils % 0.1 Nucleated RBC % 0 Sodium Potassium Chloride Carbon Dioxide Anion Gap BUN Creatinine Est GFR (CKD-EPI)AfAm Est GFR (CKD-EPI)NonAf Random Glucose Hemoglobin A1c % 5.3 Calcium Total Bilirubin AST ALT Alkaline Phosphatase Creatine Kinase 208 Creatine Kinase Index 0.9 CK-MB (CK-2) 1.9 Troponin I < 0.02 Total Protein Albumin 04/09/19 06:10 WBC RBC Hgb Hct MCV MCH MCHC RDW Plt Count MPV Absolute Neuts (auto) Neutrophils % Lymphocytes % Monocytes % Eosinophils % Basophils % Nucleated RBC % Sodium 136 Potassium 4.6 Chloride 101 Carbon Dioxide 30 Anion Gap 5 L BUN 15.4 Creatinine 1.2 Est GFR (CKD-EPI)AfAm 76.79 Est GFR (CKD-EPI)NonAf 66.26 Random Glucose 111 H Hemoglobin A1c % Calcium 9.0 Total Bilirubin 0.8 AST 24 ALT 23 Alkaline Phosphatase 75 Creatine Kinase Creatine Kinase Index CK-MB (CK-2) Troponin I Total Protein 7.2 Albumin 3.6 Active Medications Generic Name Dose Route Start Last Admin Trade Name Freq PRN Reason Stop Dose Admin Acetaminophen 1,000 mg 04/08/19 18:47 Ofirmev Injection - IVPB Q6H PRN PAIN LEVEL 6-10 Docusate Sodium 100 mg 04/08/19 18:23 Colace - PO BID PRN CONSTIPATION Dextrose/Lactated Ringer's 1,000 mls @ 50 mls/hr 04/08/19 18:23 04/08/19 18: 40 D5-Lr - IV 50 mls/hr ASDIR GLORIA Administration Ibuprofen 800 mg 04/08/19 18:23 Caldolor Injection - IVPB Q6H PRN Pain - Pacu Lisinopril 5 mg 04/09/19 10:00 04/09/19 09:29 Prinivil PO 5 mg DAILY GLORIA Administration Melatonin 5 mg 04/08/19 18:47 04/08/19 22:34 Melatonin PO 5 mg HS PRN Administration INSOMNIA Metoprolol Succinate 50 mg 04/09/19 10:00 04/09/19 09:29 Toprol Xl - PO 50 mg DAILY GLORIA Administration Morphine Sulfate 2 mg 04/08/19 18:23 04/08/19 22:30 Morphine Sulfate IVPUSH 2 mg Q4H PRN Administration PAIN LEVEL 7 - 10 Mupirocin 1 applic 04/08/19 22:00 Bactroban Ointment (For Decolonization) - NS 04/13/19 21:59 BID GLORIA Ondansetron HCl 4 mg 04/08/19 18:23 Zofran Injection IVPUSH Q6H PRN NAUSEA AND/OR VOMITING Ondansetron HCl 4 mg 04/08/19 18:23 Zofran Injection IVPUSH Q6H PRN NAUSEA Oxycodone HCl 10 mg 04/08/19 18:23 04/09/19 09:35 Roxicodone - PO 10 mg Q4H PRN Administration PAIN LEVEL 6-10 Oxycodone HCl 5 mg 04/08/19 18:23 Roxicodone - PO Q4H PRN PAIN LEVEL 1-5 Polyethylene Glycol 17 gm 04/09/19 06:15 Miralax (For Daily Use) - PO DAILY PRN CONSTIPATION ASSESSMENT/PLAN: Problem List - Problems (1) Incarcerated hernia Assessment/Plan: s/p surgical repair with Dr. Barrientos tolerated diet, without nausea/vomiting no abdominal pain cleared by surgery for d/c home with outpatient follow up Code(s): K46.0 - UNSP ABDOMINAL HERNIA WITH OBSTRUCTION, WITHOUT GANGRENE (2) Gout Assessment/Plan: chronic, but not in exacerbation Code(s): M10.9 - GOUT, UNSPECIFIED (3) Hypertension Assessment/Plan: on toprol xl and lisinopril Code(s): I10 - ESSENTIAL (PRIMARY) HYPERTENSION Qualifiers: Hypertension type: unspecified Qualified Code(s): I10 - Essential (primary ) hypertension (4) Morbid obesity with BMI of 40.0-44.9, adult Code(s): E66.01 - MORBID (SEVERE) OBESITY DUE TO EXCESS CALORIES; Z68.41 - BODY MASS INDEX (BMI) 40.0-44.9, ADULT (5) Prophylactic measure Code(s): Z29.9 - ENCOUNTER FOR PROPHYLACTIC MEASURES, UNSPECIFIED Visit type - Emergency Visit Emergency Visit: Yes ED Registration Date: 04/07/19 Care time: The patient presented to the Emergency Department on the above date and was hospitalized for further evaluation of their emergent condition. - New Patient This patient is new to me today: Yes Date on this admission: 04/09/19 - Critical Care Critical Care patient: No - Discharge Referral Referred to [facility] Med P.C.: No
[2019-04-09] MEDS ORDERED: LISINOPRIL 5 MG TABLET (FP) PO SCH ×3 (10:00)
[2019-04-09 10:12] VITALS: BP 148/92; PULSE 88; TEMP 98
--- NOTE | 2019-04-09 10:33 | PN ---
Progress Note, Physician Chief Complaint: Events noted POD #1 Hemodynamically stable History of Present Illness: Patient was seen and examined. Awake and alert. Chart was reviewed Denies chest pain, SOB or palpitations - Current Medication List Current Medications: Active Medications Acetaminophen (Ofirmev Injection -) 1,000 mg IVPB Q6H PRN PRN Reason: PAIN LEVEL 6-10 Docusate Sodium (Colace -) 100 mg PO BID PRN PRN Reason: CONSTIPATION Dextrose/Lactated Ringer's (D5-Lr -) 1,000 mls @ 50 mls/hr IV ASDIR [facility] Last Admin: 04/08/19 18:40 Dose: 50 mls/hr Ibuprofen (Caldolor Injection -) 800 mg IVPB Q6H PRN PRN Reason: Pain - Pacu Lisinopril (Prinivil) 5 mg PO DAILY [facility] Last Admin: 04/09/19 09:29 Dose: 5 mg Melatonin (Melatonin) 5 mg PO HS PRN PRN Reason: INSOMNIA Last Admin: 04/08/19 22:34 Dose: 5 mg Metoprolol Succinate (Toprol Xl -) 50 mg PO DAILY [facility] Last Admin: 04/09/19 09:29 Dose: 50 mg Morphine Sulfate (Morphine Sulfate) 2 mg IVPUSH Q4H PRN PRN Reason: PAIN LEVEL 7 - 10 Last Admin: 04/08/19 22:30 Dose: 2 mg Oxycodone HCl (Roxicodone -) 10 mg PO Q4H PRN PRN Reason: PAIN LEVEL 6-10 Last Admin: 04/09/19 09:35 Dose: 10 mg Oxycodone HCl (Roxicodone -) 5 mg PO Q4H PRN PRN Reason: PAIN LEVEL 1-5 Polyethylene Glycol (Miralax (For Daily Use) -) 17 gm PO DAILY PRN PRN Reason: CONSTIPATION - Objective Vital Signs: Vital Signs Temperature 98 F 04/09/19 10:00 Pulse Rate 88 04/09/19 10:00 Respiratory Rate 04/09/19 10:00 Blood Pressure 148/92 04/09/19 10:00 O2 Sat by Pulse Oximetry (%) 97 04/08/19 21:00 Eyes: Yes: PERRL HENT: Yes: Atraumatic Neck: Yes: Supple Cardiovascular: Yes: Regular Rate and Rhythm, S1, S2 Respiratory: Yes: CTA Bilaterally Gastrointestinal: Yes: Other (Post op) Edema: No Additional Findings/Remarks: - Review of Systems Constitutional: denies Chills. denies: Fever Cardiovascular: denies Shortness of Breath. denies: Chest Pain, Palpitations Respiratory: denies SOB. denies: Cough, Hemoptysis, Orthopnea, PND Gastrointestinal: denies: Abdominal Pain, Constipation, Diarrhea, Melena, Nausea , Rectal Bleeding, Vomiting Genitourinary: denies: Dysuria, Hematuria Musculoskeletal: denies Joint Pain Neurological: denies: Dizziness, Headache, Seizure, Syncope Labs: CBC, BMP 04/09/19 06:10 04/09/19 06:10 INR, PTT INR 1.12 (0.83-1.09) H 04/08/19 07:05 Problem List - Problems (1) Hypertensive heart disease Code(s): I11.9 - HYPERTENSIVE HEART DISEASE WITHOUT HEART FAILURE Qualifiers: Heart failure presence: without heart failure Qualified Code(s): I11.9 - Hypertensive heart disease without heart failure (2) Incarcerated hernia Code(s): K46.0 - UNSP ABDOMINAL HERNIA WITH OBSTRUCTION, WITHOUT GANGRENE (3) Morbid obesity with BMI of 40.0-44.9, adult Code(s): E66.01 - MORBID (SEVERE) OBESITY DUE TO EXCESS CALORIES; Z68.41 - BODY MASS INDEX (BMI) 40.0-44.9, ADULT (4) Systolic dysfunction, left ventricle Code(s): I51.9 - HEART DISEASE, UNSPECIFIED (5) Hypertension Code(s): I10 - ESSENTIAL (PRIMARY) HYPERTENSION Qualifiers: Hypertension type: unspecified Qualified Code(s): I10 - Essential (primary ) hypertension Assessment/Plan 1. Incarcerated ventral and umbilical hernia POD#1 Repair of incarcerated ventral hernia, repair of incarcerated umbilical hernia with mesh 2. Mild LV systolic dysfunction 3. Hypertensive heart disease 4. OSAS PLAN: 1. Continue Lisinopril 5 mg QD and Toprol XL 50 mg QD 2. Post op care 3. Patient should undergo repeat echocardiography to reassess LV/RV and valvular function and ETT Myoview to r/o ischemia - can be done as outpatient 4. Sleep study as outpatient, tobacco cessation 5. ECG reveals QTc prolongation, but asymptomatic. Follow up in office Deshawn Richardson MD
--- NOTE | 2019-04-09 12:58 | EKG ---
Test Reason : Blood Pressure : / mmHG Vent. Rate : 081 BPM Atrial Rate : 081 BPM P-R Int : 164 ms QRS Dur : 154 ms QT Int : 420 ms P-R-T Axes : 050 -70 057 degrees QTc Int : 487 ms SINUS RHYTHM WITH PREMATURE ATRIAL COMPLEXES RIGHT BUNDLE BRANCH BLOCK LEFT ANTERIOR FASCICULAR BLOCK BIFASCICULAR BLOCK ABNORMAL ECG WHEN COMPARED WITH ECG OF 08-APR-2019 13:59, PREMATURE ATRIAL COMPLEXES ARE NOW PRESENT NONSPECIFIC T WAVE ABNORMALITY, WORSE IN LATERAL LEADS Confirmed by MD Aric, Sigifredo ([id number]) on 04/09/2019 12:57:41 PM Referred By: Theresa CLEMENS Confirmed By:Sigifredo Corbett MD
--- NOTE | 2019-04-09 13:39 | PN ---
Progress Note (short form) - Note Progress Note: Anesthesia POD#1 S/P Umblical and ventral hernia repair with mesh under GA and rectus sheath block VSS,cardiac enzymes are negative ,no change in the EKG. Post/op hypertesion was controlled on B-raquel and lisinopril. No chest pain or SOB. Ambulating well. No complications to anesthesia seen. Lata Tuttle MD.
--- NOTE | 2019-04-09 13:52 | DS ---
Physical Exam: SUBJECTIVE: Patient seen and examined Patient seen and examined, denies chest pain, denies shortness of breath, feels better and wants to go home. agrees to outpatient follow up with Dr. Barrientos, cardiology. Does not have a PCP and agrees to follow up on one assigned to him. OBJECTIVE: patient is a 59 year old male with a significant past medical history of hypertension,HFrEF, HLD, lumbar spine herniations, gout, morbid obesity presents to ED for worsening abdominal hernia. Seen by surgery and scheduled for emergent hernia repair. He is POD #1 of repair of incarcerated ventral hernia, repair of incarcerated umbilical hernia with mesh. -------- prolonged qtc @ 520 Patient without PCP. made him new appt as follows NEW PRIMARY CARE DOCTOR When: April 17, Monday Time; 11.[address]: [address] [place] [address] Doctor: Triston Mercer Bring: Picture ID, insurance card, discharge paperwork Vital Signs Period Temp Pulse Resp BP Sys/Chavez Pulse Ox Last 24 Hr 97.9 F-98.4 F 88-103 18-22 138-158/71-100 96-100 PHYSICAL EXAM GENERAL: The patient is awake, alert, and fully oriented, in no acute distress. HEAD: Normal with no signs of trauma. EYES: PERRL, extraocular movements intact, sclera anicteric, conjunctiva clear. No ptosis. ENT: Ears normal, nares patent, oropharynx clear without exudates, moist mucous membranes. NECK: Trachea midline, full range of motion, supple. LUNGS: Breath sounds equal, clear to auscultation bilaterally, no wheezes, no crackles, no accessory muscle use. HEART: Regular rate and rhythm, S1, S2 without murmur, rub or gallop. ABDOMEN: Soft, nontender, obese abdomen, surgical dressing intact EXTREMITIES: 2+ pulses, warm, well-perfused, no edema. NEUROLOGICAL: . Normal speech, gait not observed. PSYCH: Normal mood, normal affect. LABS Laboratory Results - last 24 hr 04/08/19 04/09/19 04/09/19 14:04 06:10 06:10 WBC 12.7 H RBC 3.92 L Hgb 12.3 Hct 37.3 MCV 95.1 MCH 31.3 MCHC 33.0 RDW 13.0 Plt Count 278 MPV 8.1 Absolute Neuts (auto) 11.0 H Neutrophils % 86.3 H D Lymphocytes % 8.0 D Monocytes % 5.6 Eosinophils % 0.0 D Basophils % 0.1 Nucleated RBC % 0 Sodium 136 Potassium 4.6 Chloride 101 Carbon Dioxide 30 Anion Gap 5 L BUN 15.4 Creatinine 1.2 Est GFR (CKD-EPI)AfAm 76.79 Est GFR (CKD-EPI)NonAf 66.26 Random Glucose 111 H Calcium 9.0 Total Bilirubin 0.8 AST 24 ALT 23 Alkaline Phosphatase 75 Creatine Kinase 208 Creatine Kinase Index 0.9 CK-MB (CK-2) 1.9 Troponin I < 0.02 Total Protein 7.2 Albumin 3.6 HOSPITAL COURSE: Date of Admission:04/07/19 Date of Discharge: 04/09/19 Minutes to complete discharge: 60 Discharge Summary Problems reviewed: Yes Reason For Visit: INCARCERATED HERNIA Current Active Problems Gout (Acute) Hypertensive heart disease (Acute) Incarcerated hernia (Acute) Morbid obesity with BMI of 40.0-44.9, adult (Acute) Myocardial ischemia (Acute) Prophylactic measure (Acute) Systolic dysfunction, left ventricle (Acute) Condition: Stable - Instructions Diet, Activity, Other Instructions: Dr. Barrientos Discharge Instructions Dear MERT ROBISON, Post Operative Instructions Physical activity Resume your normal everyday activity as tolerated no heavy lifting or exercise until seen by your surgeon. You may walk unlimited amounts of and climb stairs. You may resume driving the car when you feel safe and comfortable behind the wheel. Wound care If you have a bandage, leave it on, and keep dry for 48 - 72 hours. After that time discard the outer bandage. If there are tapes on the skin under the outer bandage, leave them in place. They will peel off in the next 7 to 10 days. Do Not peel them off. You may shower 2 days after surgery. If there are tapes present on the skin, they can get wet. Diet There are no dietary restrictions. Eat healthy, high-fiber foods. Drink 6 to 8 glasses of liquid each day. This will assist in keeping your bowels are regular. Pain management You may take Tylenol or acetaminophen or Ibuprofen (for example, Motrin, Advil etc.) Any pain prescription medication ordered should be taken as prescribed for moderate to severe pain. Do not drive, drink alcohol or operate heavy machinery while taking narcotic pain medications. Call Dr. Barrientos for any of the following: Severe pain not relieved by medication Fever of 101 or higher Excessive bleeding or drainage on dressing Inability to urinate Call the office at [phone] for a post operative appointment in 7 - 10 days. NEW PRIMARY CARE DOCTOR When: April 17, Monday Time; 11.[address]: [address] [place] [address] Doctor: Triston Mercer Bring: Picture ID, insurance card, discharge paperwork\ Please continue the medications as outlined in your discharge paperwork. You will need a sleep study, please have this arranged by your primary physician. Medications: Toprol. 50mg, ONCE PER DAY this medication is to control your blood pressure Referrals: Hamzah Barrientos MD [Staff Physician] - Triston Madrigal MD [Staff Physician] - (NEW PCP appointment on Monday, at 11.am. ) Disposition: HOME - Home Medications Comprehensive Discharge Medication List: Ambulatory Orders Blood Pressure Test Kit-Wrist [Blood Pressure Kit] 1 each MC DAILY #1 kit Lisinopril [Prinivil] 5 mg PO DAILY #90 tablet 04/09/19 Metoprolol Succinate [Toprol XL -] 50 mg PO DAILY #90 tab.sr.24h 04/09/19 oxyCODONE HCL [Roxicodone -] 5 mg PO Q4H PRN #30 tablet MDD 6 04/09/19 Problem List - Problems (1) Gout Assessment/Plan: chronic, but not in exacerbation Code(s): M10.9 - GOUT, UNSPECIFIED (2) Hypertension Assessment/Plan: on toprol xl and lisinopril Code(s): I10 - ESSENTIAL (PRIMARY) HYPERTENSION Qualifiers: Hypertension type: unspecified Qualified Code(s): I10 - Essential (primary ) hypertension (3) Incarcerated hernia Assessment/Plan: s/p surgical repair with Dr. Barrientos tolerated diet, without nausea/vomiting no abdominal pain cleared by surgery for d/c home with outpatient follow up Code(s): K46.0 - UNSP ABDOMINAL HERNIA WITH OBSTRUCTION, WITHOUT GANGRENE (4) Myocardial ischemia Assessment/Plan: patient to follow up with cardiology as an outpatient cleared by cardiology for d/c home with outpatient follow up. Code(s): I25.9 - CHRONIC ISCHEMIC HEART DISEASE, UNSPECIFIED This patient is new to me today: Yes Date on this admission: 04/09/19 Emergency Visit: Yes ED Registration Date: 04/07/19 Care time: The patient presented to the Emergency Department on the above date and was hospitalized for further evaluation of their emergent condition. Critical Care patient: No - Discharge Referral Referred to [facility] Med P.C.: No
--- NOTE | 2019-04-09 14:16 | PATH ---
Surgical Pathology Report Patient Name: MERT ROBISON Med. Rec. #: [id number] /Age/Gender: 1960 (Age: 59) / M Account: [id number] Location: 4 TELEMETRY U Taken: 04/08/2019 Received: 04/08/2019 Reported: 04/09/2019 Physicians: Hamzah Barrientos MD Specimen(s) Received HERNIA SAC AND OMENTUM Clinical History Incarcerated hernia Final Diagnosis HERNIA SAC AND OMENTUM, EXCISION: FIBROCONNECTIVE TISSUE AND MATURE ADIPOSE TISSUE, CONSISTENT WITH HERNIA SAC AND OMENTUM. Electronically Signed Jia Saunders M.D. Gross Description Received in formalin labeled "hernia sac and omentum," is a 24.0 x 22.0 x 5.5 cm aggregate of multiple lewis-red portions of fibromembranous tissue and yellow, lobulated adipose tissue. Chinese Teacher sections are submitted in one cassette. /04/08/2019 saudi/04/08/2019
--- NOTE | 2019-04-09 15:49 | OP ---
DATE OF OPERATION: 04/08/2019 PREOPERATIVE DIAGNOSIS: Incarcerated umbilical hernia and incarcerated ventral hernia. POSTOPERATIVE DIAGNOSIS: Incarcerated umbilical hernia and incarcerated ventral hernia. PROCEDURE: Repair of incarcerated umbilical hernia with mesh and repair of incarcerated ventral hernia. SURGEON: Hamzah Barrientos MD JAVA SPRING DEVELOPER: MENA Bailey ANESTHESIA: General. OPERATIVE FINDINGS: There was an incarcerated umbilical hernia containing the majority of the greater omentum, which was completely viable. The defect at the level of the fascia was approximately 3 cm. The ventral hernia contained incarcerated omentum and preperitoneal fat as well, and the defect there was approximately 2 cm. The rest of the findings were unremarkable except for redundant skin at the umbilicus. PROCEDURE: The patient was placed on the operating table in supine position. After induction of general anesthesia, the patient's abdomen was prepped with ChloraPrep and draped in sterile fashion after placement of a Mendiola catheter and sequential compression device around the patient's lower extremities. A timeout was taken and incision made in the midline over the palpable incarcerated ventral hernia. This was taken down through the skin and attenuated subcutaneous tissue. Blunt dissection was carried out to reveal the sac, which was entered and emptied of a large amount of clear peritoneal fluid. Redundant and incarcerated preperitoneal fat and omentum was excised using the LigaSure device and this tissue and the sac passed off the operative field and sent for pathological examination. The undersurface of the defect was cleared using blunt dissection. Attention was then turned to the umbilicus area, where an infraumbilical skin crease incision was made from 3 to 9 o'clock using a scalpel and taken down to subcutaneous tissue using blunt dissection, the sac was identified and dissected off the umbilical skin and stalk. Again the sac was entered in a similar fashion and the majority of the greater omentum which was viable was excised using the LigaSure device, as it would have been too difficult to reduce through the small defect in the abdominal wall. This specimen was passed off the operative field as well, along with redundant sac. Repair of the defect at the umbilicus was then carried out using a piece of Sepramesh IP and suturing into the defect with continuous 0 Prolene. The defect at the ventral hernia site was closed primarily with multiple interrupted number 1 horizontal mattress sutures of Prolene. The subcutaneous tissue was irrigated in all cases and then the deep subcutaneous tissue that encompassed the orders of the sac were closed using interrupted 2-0 Vicryl at both sites and the deep dermis closed with interrupted 2-0 Vicryl as well. The skin edges were reapproximated with surgical geoff and the umbilical incision dressed with bacitracin, Xeroform, cotton balls, and sterile gauze, and the midline incision with sterile gauze as well, and the procedure terminated at this point, and the patient aroused from general anesthesia and transferred to the post-anesthesia care unit in stable condition, awake and alert. Estimated blood loss: 100 mL. Replacement: Crystalloid. Drains: None. Specimens: Hernia sac, omentum, and preperitoneal fat to Pathology. I, Hamzah Barrientos, was physically present in the operating room from the time the patient was placed on the operating table until he was transferred to the post-anesthesia care unit in [employer]. MD ROBYN Leahy/[id number]
== END 2019-04-09 14:30 | disposition home or self-care (01) | DRG 227 ==
LOC: JER 15:06 → J6S 18:36 → JSAMEDAYSX 04-08 16:04 → J4W 04-08 18:21
PROVIDERS: ADMIT Internal Medicine; ATTEND Nurse Practitioner Family
PROC: 0WQF0ZZ Repair Abdominal Wall, Open Approach (ICD-10-PCS; 2019-04-08)
PROC: 0DTU0ZZ Resection of Omentum, Open Approach (ICD-10-PCS; 2019-04-08)
PROC: 0WUF0JZ Supplement Abdominal Wall with Synthetic Substitute, Open Approach (ICD-10-PCS; principal; 2019-04-08 10:06)
DX: K43.9 Ventral hernia without obstruction or gangrene (principal); K42.0 Umbilical hernia with obstruction, without gangrene; I11.9 Hypertensive heart disease without heart failure; E66.01 Morbid (severe) obesity due to excess calories; Z68.42 Body mass index [BMI] 45.0-49.9, adult; G47.33 Obstructive sleep apnea (adult) (pediatric); E78.5 Hyperlipidemia, unspecified; Z72.0 Tobacco use
CPT/HCPCS: 36415; 74177-TC; 80053; 81003; 82550; 82553; 83036; 83605; 83735; 84100; 84484; 85025; 85610; 86850; 86900; 86901; 88302-TC; 93005; 93010; 94760; 99285-25; J0131; Q9967

== ENCOUNTER 2020-05-27 11:17 | Emergency (ER) | payer OTHER ==
[2020-05-27 11:28] VITALS: TEMP 98; BMI 40.3
[2020-05-27] MEDS ORDERED: morphine CARPU-JECT 4 MG/1 ML DISP.SYRIN IVPUSH ONE (11:55)
[2020-05-27] MEDS ORDERED: morphine SULFATE 4 MG/ML VIAL ONE (12:34)
[2020-05-27 12:48] LABS: BASO % 0.6 % (0-2.0); EOS % 0.3 % (0-4.5); HEMATOCRIT 37.6 % (35.4-49); HEMOGLOBIN 12.5 GM/dL (11.7-16.9); LYMPH % 21.4 % (8-40); MCH 31.5 pg (25.7-33.7); MCHC 33.3 g/dl (32.0-35.9); MEAN CELL VOLUME 94.5 fl (80-96); MEAN PLT VOLUME 7.7 fl (7.5-11.1); NEUT % 64.7 % (42.8-82.8); PLATELET COUNT 385 K/MM3 (134-434); RBC 3.98 M/mm3 (4.00-5.60); WHITE BLOOD COUNT 8.9 K/mm3 (4.0-10.0)
[2020-05-27 13:04] LABS: POTASSIUM 4.5 mmol/L (3.5-5.1)
[2020-05-27 13:06] LABS: CALCIUM 9.2 mg/dL (8.5-10.1)
[2020-05-27 13:07] LABS: ALBUMIN 3.5 g/dl (3.4-5.0); BLOOD UREA NITROGEN 15.7 mg/dL (7-18)
[2020-05-27 13:09] LABS: URIC ACID 7.3 mg/dL (2.6-7.2)
[2020-05-27 13:10] LABS: CREATININE 1.3 mg/dL (0.55-1.3)
[2020-05-27 13:11] LABS: BILIRUBIN,TOTAL 0.6 mg/dL (0.2-1); TOT PROT 7.6 g/dl (6.4-8.2)
[2020-05-27] MEDS ORDERED: KETOROLAC TROMETHAMINE 30 MG/1 ML VIAL IVPUSH ONE (14:55)
[2020-05-27] MEDS ORDERED: KETOROLAC TROMETHAMINE 30 MG/1 ML VIAL ONE (14:56)
[2020-05-27 16:38] VITALS: BP 122/74; PULSE 93
== END 2020-05-27 16:30 | disposition home or self-care (01) ==
LOC: JERFT 11:17
PROC: 3E0333Z Introduction of Anti-inflammatory into Peripheral Vein, Percutaneous Approach (ICD-10-PCS; principal; 2020-05-27)
PROC: 3E033NZ Introduction of Analgesics, Hypnotics, Sedatives into Peripheral Vein, Percutaneous Approach (ICD-10-PCS; 2020-05-27)
DX: M10.071 Idiopathic gout, right ankle and foot (principal)
CPT/HCPCS: 36415; 73610-TC-RT-FY; 73630-TC-RT-FY; 80053; 84550; 85025; 85651; 86140; 93971-TC; 99285-25